=== PATIENT | male | born 1960 | race Caucasian/White ===

== ENCOUNTER 2018-03-20 12:12 | Emergency (ER) | payer OTHER, SELFPAY ==
[2018-03-20 12:29] VITALS: BP 128/79; PULSE 68; RESP 18; TEMP 37.2; O2SAT 98
[2018-03-20 12:40] LABS: Bilirubin Negative (Negative); Blood Trace-intact (Negative); Clarity Clear; Glucose Negative (Negative); Ketones Negative (Negative); Leukocyte Esterase Negative (Negative); Nitrite Negative (Negative); Specific Gravity 1.025 (1.005-1.025); Urobilinogen 0.2 EU/dL (Up TO 0.2)
[2018-03-20 12:51] LABS: Bacteria Negative HPF (Negative); C & S Indicated? No; Casts 0-2 Hyaline LPF (Negative); Crystals Negative HPF (Negative); Epithelial Cells Rare HPF (Negative); Mucus Moderate (Negative); RBC 0-2 (0-2); WBC 0-2 HPF (0-5)
--- NOTE | 2018-03-20 13:11 | ED.GENADUL ---
Disposition Clinical Impression: Abdominal muscle pain Disposition: HOME Condition: Fair Instructions: Musculoskeletal Pain (ED) Additional Instructions: Encourage hydration. Tylenol and/or ibuprofen as needed for discomfort. Heat or ice to affected area. You may try topical patches such as Salonpas or Lidoderm patches to affected area. Please follow-up with primary care this week for reevaluation. Avoid activities that cause increased discomfort. Your laboratory evaluation and CT scan were reassuring while here did not indicate acute abdominal pathology as the source of your pain. If you develop increased pain, fever/chills, nausea/vomiting, change in bowel habits, other new/worsening symptoms please seek care urgently once again. Prescriptions: TraMADol [Ultram] 50 mg PO Q6H PRN #8 tab PRN Reason: Pain Referrals: Roberth De Leon MD [Primary Care Provider] - Medical Decision Making - Lab Data Laboratory Tests 03/20/18 12:35 Urine Color Yellow Urine Clarity Clear Urine pH 6.0 Ur Specific [place] 1.025 Urine Protein Negative Urine Ketones Negative Urine Blood Trace-intact H Urine Nitrite Negative Urine Bilirubin Negative Urine Urobilinogen 0.2 Ur Leukocyte Esterase Negative Urine RBC 0-2 Urine WBC 0-2 Ur Epithelial Cells Rare Urine Crystals Negative Urine Bacteria Negative Urine Casts 0-2 hyaline Urine Mucus Moderate Ur Culture Indicated? No Urine Glucose Negative Results reviewed for labs ordered during visit: Yes - Radiology Data Radiology results: report reviewed CT was reviewed by radiologist. They advised that the appendix appears normal and is filled with oral contrast. Normal-appearing solid organs. No intestinal no obstructive uropathy. No free fluid. No free air. No inflammatory changes. Advise no specific etiology identified for the patient's symptoms. - Medical Decision Making Patient presents today with chief complaint of low central abdominal pain. On exam, patient is resting comfortably. He reports that when he is holding still either directly upright or lying down he is having no discomfort. Relation the pain becomes severe. This was elicited on exam when I had him forward flex bilateral hips. Pain is not unilateral and seems to be affecting both sides, right greater than left. No pain is elicited on palpation. He appears nontoxic with normal vital signs. Rectal exam was performed as he is also endorsing some increased frequency and patient does not have any prostate tenderness. He denies any dysuria or hematuria. No change in bowel habits. States otherwise he is feeling quite well. We will obtain laboratory evaluation as well as CT of the abdomen. Discussed this plan with the patient is in agreement. Patient declines any analgesics at this time. Laboratory evaluation without significant abnormality. No leukocytosis. Only abnormality is a glucose is minimally elevated at 120. Urinalysis is without abnormality. CT results pending. CT was obtained with oral contrast. We are unable to obtain IV contrast secondary to machine malfunction. However, radiologist is able to still get a good read with oral contrast and advised no acute pathology is noted. I discussed these findings with the patient. I also discussed the case with Dr. Zimmer. The patient is only having discomfort with movement. His exam is very reassuring for no peritoneal findings. No pain to palpation. Pain is only elicited with movement making me highly suspicious for muscular cause. He does report that he had groin pull several months ago that was exquisitely tender and quite similar to this. We discussed pain management. We discussed stretching. Heat or ice to affected area. Patient did receive Toradol and is feeling much improved. He is able to ambulate to the restroom unassisted with minimally antalgic gait. Seems to be favoring the right side more so than the left side. Patient is requesting discharge. I have asked that he follow-up with primary care this week. We discussed activities that he should avoid. Note was given for work to excuse him for the next 2 days as patient works in maintenance construction helper. Given the severity of his discomfort he was also prescribed a short course of tramadol. We did discuss safe usage of this medication and he did sign a narcotic contract. We discussed new/worsening symptoms when to seek care urgently once again. All his questions and concerns were addressed and he is in agreement with this plan. History of Present Illness - General Chief complaint: Abd Prob Stated complaint: ABDOMINAL PAIN Time Seen by Provider: 03/20/18 12:15 Source: patient, family, RN notes reviewed Mode of arrival: ambulatory (with crutches) Limitations: no limitations - History of Present Illness Initial comments: Patient is a 57-year-old male presenting today with chief complaint of low central abdominal pain that has been present for the past 3 days. Reports that the pain is severe and much worse with movement. States he has been using crutches to help with mobilization as ambulation is so painful. States that pain completely subsides when he is at rest. He denies any previous abdominal surgeries. No history of GI issues. Denies any change in bowel habits. He does report that he is at increased urgency of urination. Denies any dysuria. No penile discharge. Denies testicular pain. Denies any fevers or chills. Denies any history of prostate issues. Denies any recent trauma. No known over exertion. However, he has been splitting wood and clearing land this week. - Related Data TraMADol [Ultram] 50 mg PO Q6H PRN #8 tab 03/20/18 Allergies Allergy/AdvReac Type Severity Reaction Status Date / Time No Known Allergies Allergy Unverified 03/20/18 12:34 Review of Systems Constitutional: no symptoms reported. denies: chills, fever, malaise Respiratory: no symptoms reported. denies: cough, shortness of breath Cardiovascular: denies: chest pain, palpitations Gastrointestinal: as per HPI, abdominal pain. denies: nausea, vomiting, diarrhea, constipation, hematemesis Genitourinary: as per HPI, frequency. denies: urgency, dysuria, hematuria, discharge, testicular pain, testicular mass Musculoskeletal: denies: back pain Skin: denies: rash, lesions Neurological: denies: headache Past Medical History - Past Medical History Medical history: no medical history Surgical history: no surgical history - Social History Living Situation: lives with family General Exam - General Limitations: no limitations General appearance: alert, in no apparent distress - Head Head exam: Present: atraumatic - Eye Eye exam: Present: normal apperance - ENT ENT exam: Present: mucous membranes moist - Respiratory Respiratory exam: Present: normal lung sounds bilaterally. Absent: respiratory distress - Cardiovascular Cardiovascular Exam: Present: regular rate, normal rhythm, normal heart sounds - GI/Abdominal GI/Abdominal exam: Present: soft, tenderness (no tenderness with palpation. Pain with forward flexion of bilateral hips. Pain slightly worse on the right than the left. ), normal bowel sounds. Absent: distended, guarding, rebound, rigid - Rectal Rectal exam: Present: normal inspection, normal rectal tone, heme (-) stool, normal prostate. Absent: fecal impaction, hemorrhoids, mass, tenderness, prostate tenderness, prostate enlargement - Extremities Exam Extremities exam: Present: normal inspection - Back Exam Back exam: Present: normal inspection. Absent: CVA tenderness (R), CVA tenderness (L) - Neurological Exam Neurological exam: Present: alert, abnormal gait (walking with crutches) - Psychiatric Psychiatric exam: Present: normal affect, normal mood - Skin Skin exam: Present: warm, dry, intact, normal color Course Vital Signs - 24 hr 03/20/18 12:29 Temperature 37.2 C Pulse 68 Respiratory 18 Rate Blood Pressure 128/79 Pulse Oximetry 98
[2018-03-20 13:17] LABS: Abs Immature Grans 0.01 k/cumm (0.0-0.09); Absolute Basophil Count 0.06 k/cumm (0.0-0.2); Absolute Eosinophil Count 0.64 k/cumm (0.0-0.7); Absolute Lymphocyte Count 1.89 k/cumm (1.2-3.4); Absolute Neutrophil Count 6.66 k/cumm (1.2-6.7); Basophils % 0.6; Eosinophils % 6.4; HCT 43.7 % (40.0-50.0); HGB 15.3 g/dL (13.5-17.5); Immature Grans % 0.1; Mean Corpuscular Hemoglobin 31.5 pg (27.0-33.0); Mean Corpuscular Volume 90.1 fL (80-95); Mean Platelet Volume 10.8 fL (8.0-11.0); Neutrophils % 66.9; Platelet Count 168 x1000/uL (130-400); RBC 4.85 m/cumm (4.50-6.00); RBC Distribution Width 13.1 % (11.8-14.1); White Blood Cell Count 9.96 k/cumm (4.4-10.8)
[2018-03-20] MEDS: Lactated Ringers 1,000 ML 1000 ML IV (13:17)
[2018-03-20 13:32] LABS: ALT 26 U/L (12-78); AST 19 U/L (15-37); Albumin 3.6 g/dL (3.4-5.0); Alkaline Phosphatase 69 U/L (46-116); Anion Gap 7.7 mmol/L (3-11); BUN 13 mg/dL (7-18); Bilirubin, Total 0.5 mg/dL (0.2-1.0); CO2 28.3 mmol/L (21.0-32.0); CREATININE 0.97 mg/dL (0.70-1.30); Calcium 8.8 mg/dL (8.5-10.1); Chloride 104 mmol/L (98-107); Glucose 120 mg/dL (70-100); Lipase 132 U/L (73-393); Magnesium 2.1 mg/dL (1.8-2.4); Potassium 3.8 mmol/L (3.5-5.1); Sodium 140 mmol/L (136-145); Total Protein 6.9 g/dL (6.4-8.2)
[2018-03-20 13:35] LABS: Troponin I < 0.02 ng/mL (0.00-0.06)
--- NOTE | 2018-03-20 13:44 | DI.RPTCT_ITS ---
SYMPTOM/DIAGNOSIS: LOW CENTRAL ABDOMINAL PAIN CT ABDOMEN AND PELVIS: There are no prior comparison exams. Images were performed from the lung bases through the ischial tuberosities after oral and without benefit of IV contrast. The lung bases are clear. The heart size is normal. The liver, gallbladder, spleen, pancreas and adrenals appear normal. There are too small nonobstructing calculi in the right kidney. The left kidney is unremarkable. The appendix appears normal. There is no bowel dilatation or inflammatory change. The bladder is unremarkable. There is a small fatty containing left inguinal hernia. IMPRESSION: Nonobstructing right renal calculi, no acute abnormality
[2018-03-20] MEDS: Ketorolac 30 MG/ML VIAL IVP (14:55)
[2018-03-20 15:05] VITALS: BP 110/90; PULSE 62; RESP 18; TEMP 36.6; O2SAT 97
--- NOTE | 2018-03-20 16:07 | DI.VRAD_ITS ---
EXAM: CT Abdomen and Pelvis Without Intravenous Contrast CLINICAL HISTORY: 57 years old, male; Pain; Other: Lower central abdominal pain. ; Patient HX: No prior abdominal surgeries, pain since wednesday TECHNIQUE: Axial computed tomography images of the abdomen and pelvis without intravenous contrast. All CT scans at this facility use at least one of these dose optimization techniques: automated exposure control; mA and/or kV adjustment per patient size (includes targeted exams where dose is matched to clinical indication); or iterative reconstruction. Coronal and sagittal reformatted images were created and reviewed. COMPARISON: No relevant prior studies available. FINDINGS: The appendix appears normal and is filled with oral contrast. Normal appearing solid organs. No intestinal obstruction. No obstructive uropathy. No free fluid. No free air. No inflammatory changes. IMPRESSION: No specific etiology identified for the patient's symptoms. Dictated and Authenticated by: Donn Black MD. Ordering:FLORY LIZARRAGA MD
[2018-03-20] MEDS: MORPHine 10 MG/ML VIAL 2 MG IVP (16:38)
== END 2018-03-20 16:55 | disposition home or self-care (01) ==
PROVIDERS: Physician Assistant; Emergency Provider Physician Assistant; PCP Family Medicine
DX: S39.011A Strain of muscle, fascia and tendon of abdomen, initial encounter (principal); X50.0XXA Overexertion from strenuous movement or load, initial encounter; R35.0 Frequency of micturition
CPT/HCPCS: 36415; 80053; 83690; 96361; 96374; 96375; 99285; 74176; 81003; 81015; 83735; 84484; 85025; 99284; J1885; J2270

== ENCOUNTER 2018-06-23 04:44 | Emergency (ER) | payer OTHER, SELFPAY ==
[2018-06-23 04:59] LABS: Bilirubin Negative (Negative); Blood Small (Negative); Clarity Clear; Glucose Negative (Negative); Ketones Negative (Negative); Leukocyte Esterase Negative (Negative); Nitrite Negative (Negative); Specific Gravity 1.025 (1.005-1.025); Urobilinogen 0.2 EU/dL (Up TO 0.2); pH 6.5 (5-8)
[2018-06-23 05:00] VITALS: BP 139/84; PULSE 63; RESP 22; TEMP 37; O2SAT 100
--- NOTE | 2018-06-23 05:01 | DI.CT_ITS ---
SYMPTOM/DIAGNOSIS: FLANK PAIN, SUDDEN ONSET, DIFFICULTY URINATING. ABDOMINAL AND PELVIC CT: 06/23/18 CT examination of the abdomen and pelvis was performed without contrast administration. Images obtained through the lung bases show an area of apparent consolidation peripherally in the right middle lobe which is incompletely imaged, correlation requested regarding the possibility of acute pneumonia. This was not present on previous abdominal CT of 03/20/18. Liver, spleen and pancreas are unremarkable by noncontrast criteria as are the gallbladder and bile ducts. Abdominal aorta is of normal diameter. No significant abdominal wall hernia seen. No significant abdominal or pelvic adenopathy. Appendix appears normal. No evidence of diverticulitis. Adrenals appear normal bilaterally. Left kidney and ureter are normal with no evidence of hydronephrosis or nephrolithiasis. There are nonobstructing stones in the collecting system of the right kidney. There is right hydronephrosis and hydroureter to the level of the ureterovesical junction where there is an intramural 3 mm in diameter obstructing stone. CONCLUSION: 1. 3 mm in diameter right UVJ obstructing stone. 2. Nonobstructing right renal calculi also noted. 3. Findings of right middle lobe suggesting acute pneumonia, please correlate clinically.
--- NOTE | 2018-06-23 05:02 | W.ED.GENAD ---
Discharge Plan Disposition Patient Disposition: HOME Discharge Details Chief Complaint: FlankPain Clinical Impression: Right ureteral calculus, Kidney stones Primary Care Provider: Roberth De Leon ED Provider: Kj Nieto Home Meds and New Rx's Prescriptions: New ibuprofen 600 mg tablet 600 mg PO QID PRN (Reason: pain) Qty: 30 RF: 0 ondansetron 4 mg tablet,disintegrating 4 mg PO TID PRN (Reason: nausea and vomiting) 5 Days RF: 0 Discharge Instructions Instructions: Kidney Stones (ED) Additional Instructions: Please drink plenty of fluids to stay hydrated. Please contact your primary care physician to arrange follow-up. Follow-up with urology should symptoms persist. Return to the ER for any worsening or new concerning symptoms. Referrals: Madhav Oquendo MD [ [facility] STAFF PHYSICIAN] - Medical Decision Making 5:10 -- 57-year-old male here with sudden onset of right suprapubic pain and right flank pain that started around 3 AM minutes and fairly constant. Patient also with a sensation as though he has to urinate. Presentation most consistent with renal colic. He has no focal tenderness over McBurney's point I think this is less likely acute appendicitis. Plan is to check labs, will give zofran IV and analgesia with Toradol IV. I obtained and reviewed CT of the abdomen pelvis that was performed on 03/20/2018: Nonobstructing right renal calculi in the right kidney with no acute abnormality. UA reviewed: RBCs 10-20, WBC 0-2. Ultrasound is not available emergently. Plan to CT abd and pelvis to assess for acute surgical pathology. 5:55 -- CT abdomen and pelvis interpreted by radiology: 3 mm right UVJ stone projecting into the urinary bladder causes mild hydronephrosis. There are 2 nonobstructing stones in the right kidney measuring up to 3 mm. Fluid in the left hemiscrotum 5 cm diameter may be spermatocele or hydrocele. Patient reassessed and notes feels better. Plan is to discharge him with ibuprofen and Zofran. I do not believe tamsulosin is indicated given size of stone. I will have him follow-up with urology should symptoms not improve over the next couple days. Disposition decision was made weighing the risks and benefits of hospitalization versus outpatient treatment, the risk for further decompensation, and the patient's wishes. The patient was stable and requested discharge. Prior to discharge, my usual and customary return precautions were reviewed with the patient - this included follow-up instructions and reason to return to the emergency department if condition worsens, does not improve as expected, or other new concerns arise. HPI General Mode of arrival: ambulatory. Date/Time Provider Initiated Documentation: 06/23/18 05:00. Limitations to Documentation: no limitations. Information obtained by: patient. HPI Narrative: 57-year-old male presents with chief complaint of abdominal pain. Patient notes that pain started in his right lower abdomen and groin at 3 AM. Pain is been constant. Severe. No modifiers. He has associated nausea and vomiting x2. Pain is described as sharp. He also notes a sensation that he feels like he constantly has to urinate. Related Data Home Medications Medication Instructions Recorded Confirmed ibuprofen 600 mg PO QID PRN #30 tab 06/23/18 ondansetron 4 mg PO TID PRN 5 Days tab 06/23/18 Previous Rx's Medication Instructions Recorded ibuprofen 600 mg PO QID PRN #30 tab 06/23/18 ondansetron 4 mg PO TID PRN 5 Days tab 06/23/18 Allergies Allergy/AdvReac Type Severity Reaction Status Date / Time No Known Allergies Allergy Unverified 06/23/18 05:12 General ARTUR: 3 Review of Systems Review of Systems All systems reviewed & are unremarkable except as noted in HPI and below Gastrointestinal Reports nausea and Reports vomiting Genitourinary Reports as per HPI, Denies hematuria, Denies genital pain, Denies dysuria, Reports flank pain (right), Denies penile discharge, Reports testicular mass (chronic unchanged left) and Denies testicular pain [facility] [place] Social History Smoking/Tobacco Use Status: Never Surgical History Colonoscopy - MAC (05/19/13) Exam Const General: uncomfortable and well developed HENMT Mouth: moist mucous membranes Eyes Conjunctivae: conjunctivae normal Sclera: sclerae normal Neck Neck: normal visual inspection Resp Effort & Inspection: normal respiratory effort and no respiratory distress Auscultation: no rales, no rhonchi and no wheezes Cardio Jugular venous pressure: no JVD Rate: regular rate Rhythm: regular rhythm Heart Sounds: no gallops, no murmurs and no rubs GI Inspection: non-distended Palpation: soft, no guarding, no hernias, not rigid and tender (rt suprapubic) not at McBurney's point and with no rebound tenderness Auscultation: normal bowel sounds Skin General skin exam: no rashes or lesions noted and other (warm) Neuro General: alert, awake and moves all extremities Extrem General: no edema Psych Appearance: grossly normal Mental Status: mental status grossly normal Speech and Movement: speech and movement normal
[2018-06-23] MEDS: Ondansetron 4 MG/2 ML VIAL (05:07)
[2018-06-23] MEDS: Ketorolac 15 MG/ML VIAL IVP (05:07)
[2018-06-23 05:08] LABS: Bacteria Rare HPF (Negative); C & S Indicated? No; Casts Negative LPF (Negative); Crystals Negative HPF (Negative); Epithelial Cells Rare HPF (Negative); Mucus Negative (Negative); WBC 0-2 HPF (0-5)
[2018-06-23] MEDS: Lactated Ringers 1,000 ML 1000 ML IV (05:08)
[2018-06-23 05:13] LABS: Abs Immature Grans 0.01 k/cumm (0.0-0.09); Absolute Eosinophil Count 0.76 k/cumm (0.0-0.7); Absolute Lymphocyte Count 2.14 k/cumm (1.2-3.4); Absolute Monocyte Count 0.74 k/cumm (0.11-0.7); Basophils % 0.8; Eosinophils % 6.3; HCT 46.2 % (40.0-50.0); HGB 15.8 g/dL (13.5-17.5); Immature Grans % 0.1; Lymphocytes % 17.7; Mean Corp. HGB Concentration 34.2 g/dL (32.0-36.0); Mean Corpuscular Hemoglobin 30.7 pg (27.0-33.0); Mean Corpuscular Volume 89.9 fL (80-95); Mean Platelet Volume 10.1 fL (8.0-11.0); Monocytes % 6.1; Platelet Count 219 x1000/uL (130-400); RBC 5.14 m/cumm (4.50-6.00); RBC Distribution Width 12.8 % (11.8-14.1); White Blood Cell Count 12.08 k/cumm (4.4-10.8)
[2018-06-23 05:14] LABS: Absolute Neutrophil Count 8.34 k/cumm (1.2-6.7)
--- NOTE | 2018-06-23 05:18 | ED.GENADUL_ITS ---
Discharge Plan Disposition Patient Disposition: HOME Discharge Details Chief Complaint: FlankPain Clinical Impression: Right ureteral calculus, Kidney stones Primary Care Provider: Roberth De Leon ED Provider: Kj Nieto Home Meds and New Rx's Prescriptions: New ibuprofen 600 mg tablet 600 mg PO QID PRN (Reason: pain) Qty: 30 RF: 0 ondansetron 4 mg tablet,disintegrating 4 mg PO TID PRN (Reason: nausea and vomiting) 5 Days RF: 0 Discharge Instructions Instructions: Kidney Stones (ED) Additional Instructions: Please drink plenty of fluids to stay hydrated. Please contact your primary care physician to arrange follow-up. Follow-up with urology should symptoms persist. Return to the ER for any worsening or new concerning symptoms. Referrals: Madhav Oquendo MD [ [facility] STAFF PHYSICIAN] - Medical Decision Making 5:10 -- 57-year-old male here with sudden onset of right suprapubic pain and right flank pain that started around 3 AM minutes and fairly constant. Patient also with a sensation as though he has to urinate. Presentation most consistent with renal colic. He has no focal tenderness over McBurney's point I think this is less likely acute appendicitis. Plan is to check labs, will give zofran IV and analgesia with Toradol IV. I obtained and reviewed CT of the abdomen pelvis that was performed on 03/20/2018 : Nonobstructing right renal calculi in the right kidney with no acute abnormality. UA reviewed: RBCs 10-20, WBC 0-2. Ultrasound is not available emergently. Plan to CT abd and pelvis to assess for acute surgical pathology. 5:55 -- CT abdomen and pelvis interpreted by radiology: 3 mm right UVJ stone projecting into the urinary bladder causes mild hydronephrosis. There are 2 nonobstructing stones in the right kidney measuring up to 3 mm. Fluid in the left hemiscrotum 5 cm diameter may be spermatocele or hydrocele. Patient reassessed and notes feels better. Plan is to discharge him with ibuprofen and Zofran. I do not believe tamsulosin is indicated given size of stone. I will have him follow-up with urology should symptoms not improve over the next couple days. Disposition decision was made weighing the risks and benefits of hospitalization versus outpatient treatment, the risk for further decompensation , and the patient's wishes. The patient was stable and requested discharge. Prior to discharge, my usual and customary return precautions were reviewed with the patient - this included follow-up instructions and reason to return to the emergency department if condition worsens, does not improve as expected, or other new concerns arise. HPI General Mode of arrival: ambulatory . Date/Time Provider Initiated Documentation: 06/23/18 05:00 . Limitations to Documentation: no limitations . Information obtained by: patient . HPI Narrative: 57-year-old male presents with chief complaint of abdominal pain. Patient notes that pain started in his right lower abdomen and groin at 3 AM. Pain is been constant. Severe. No modifiers. He has associated nausea and vomiting x2. Pain is described as sharp. He also notes a sensation that he feels like he constantly has to urinate. Related Data Home Medications Medication Instructions Recorded Confirmed ibuprofen 600 mg PO QID PRN #30 tab 06/23/18 ondansetron 4 mg PO TID PRN 5 Days tab 06/23/18 Previous Rx's Medication Instructions Recorded ibuprofen 600 mg PO QID PRN #30 tab 06/23/18 ondansetron 4 mg PO TID PRN 5 Days tab 06/23/18 Allergies Allergy/AdvReac Type Severity Reaction Status Date / Time No Known Allergies Allergy Unverified 06/23/18 05:12 General ARTUR: 3 Review of Systems Review of Systems All systems reviewed & are unremarkable except as noted in HPI and below Gastrointestinal Reports nausea and Reports vomiting Genitourinary Reports as per HPI, Denies hematuria, Denies genital pain, Denies dysuria, Reports flank pain (right), Denies penile discharge, Reports testicular mass ( chronic unchanged left) and Denies testicular pain [facility] Social History Smoking/Tobacco Use Status: Never Surgical History Colonoscopy - MAC (05/19/13) Exam Const General: uncomfortable and well developed HENMT Mouth: moist mucous membranes Eyes Conjunctivae: conjunctivae normal Sclera: sclerae normal Neck Neck: normal visual inspection Resp Effort & Inspection: normal respiratory effort and no respiratory distress Auscultation: no rales, no rhonchi and no wheezes Cardio Jugular venous pressure: no JVD Rate: regular rate Rhythm: regular rhythm Heart Sounds: no gallops, no murmurs and no rubs GI Inspection: non-distended Palpation: soft, no guarding, no hernias, not rigid and tender (rt suprapubic) not at McBurney's point and with no rebound tenderness Auscultation: normal bowel sounds Skin General skin exam: no rashes or lesions noted and other (warm) Neuro General: alert, awake and moves all extremities Extrem General: no edema Psych Appearance: grossly normal Mental Status: mental status grossly normal Speech and Movement: speech and movement normal
[2018-06-23 05:25] LABS: ALT 29 U/L (12-78); AST 22 U/L (15-37); Alkaline Phosphatase 57 U/L (46-116); Anion Gap 9.6 mmol/L (3-11); BUN 25 mg/dL (7-18); Bilirubin, Total 0.6 mg/dL (0.2-1.0); CO2 27.4 mmol/L (21.0-32.0); CREATININE 1.35 mg/dL (0.70-1.30); Calcium 8.8 mg/dL (8.5-10.1); Chloride 104 mmol/L (98-107); Estimated GFR 54.87 (mL/min/1.73m2); Glucose 137 mg/dL (70-100); Potassium 3.7 mmol/L (3.5-5.1); Sodium 141 mmol/L (136-145); Total Protein 7.3 g/dL (6.4-8.2)
--- NOTE | 2018-06-23 05:43 | DI.VRAD_ITS ---
EXAM: CT Abdomen and Pelvis Without Intravenous Contrast EXAM DATE/TIME: 06/23/2018 5:03 AM CLINICAL HISTORY: 57 years old, male; Pain; Abdominal pain; Localized; Other: R flank and rlq; Patient HX: Sudden onset of rlq and r flank pain difficulty urinating and vomiting TECHNIQUE: Axial computed tomography images of the abdomen and pelvis without intravenous contrast. All CT scans at this facility use at least one of these dose optimization techniques: automated exposure control; mA and/or kV adjustment per patient size (includes targeted exams where dose is matched to clinical indication); or iterative reconstruction. Coronal and sagittal reformatted images were created and reviewed. COMPARISON: CT ABD PELVIS WO CONTRAST 03/20/2018 3:17 PM FINDINGS: Lower thorax: Small amount of postinflammatory change in the visualized portion of the right middle lobe. ABDOMEN: Liver: Unremarkable. No suspicious lesions. Gallbladder and bile ducts: Unremarkable. Pancreas: Unremarkable. Spleen: Unremarkable. No suspicious lesions. Adrenals: Unremarkable. No suspicious nodule. Kidneys and ureters: 3 mm right UVJ stone projecting into the urinary bladder causes mild hydronephrosis. There are 2 nonobstructing stones in the right kidney measuring up to 3 mm. Stomach and bowel: Unremarkable. No inflammed or dilated loops. Appendix: No evidence of appendicitis. PELVIS: Bladder: Unremarkable as visualized. Reproductive: Fluid in the left hemiscrotum the diameter 5 cm may be a spermatocele or a hydrocele. ABDOMEN and PELVIS: Intraperitoneal space: No free air. No significant fluid collection. Bones/joints: No acute fracture. No dislocation. Soft tissues: Unremarkable. Vasculature: Unremarkable. Lymph nodes: Unremarkable. IMPRESSION: 3 mm right UVJ stone causing mild hydronephrosis. Dictated and Authenticated by: Elijah Edwards MD. Ordering:LUIS CARLOS KHAN MD
[2018-06-23 06:08] VITALS: BP 128/74; PULSE 64; RESP 16; TEMP 36.9; O2SAT 98
== END 2018-06-23 06:26 | disposition home or self-care (01) ==
LOC: ER 06:13
PROVIDERS: Emergency Provider Student in an Organized Health Care Education/Training Program; PCP Family Medicine
DX: N20.2 Calculus of kidney with calculus of ureter (principal)
CPT/HCPCS: 80053; 96361; 96374; 99284; 74176; 81003; 81015; 85025; J1885; J2405

== ENCOUNTER 2019-05-26 12:13 | Outpatient (CLI) | payer OTHER, SELFPAY ==
--- NOTE | 2019-05-26 15:58 | DI.RAD_ITS ---
EXAM: XR FOOT LT COMPLETE INDICATION: ACQUIRED HAMMER TOE LT FOOT, M20.42. COMPARISON: No exams were available for comparison TECHNIQUE: 2D digital imaging was performed. FINDINGS: A small ossicle is seen at the anterior process of the calcaneus. Heel spurs are present. There ar e mild degenerative changes of the intertarsal and tarsal metatarsal joints. IMPRESSION:
== END 2019-05-26 12:33 ==
PROVIDERS: PCP Family Medicine; Visit Provider Podiatrist Foot & Ankle Surgery
DX: M20.42 Other hammer toe(s) (acquired), left foot (principal); M77.32 Calcaneal spur, left foot; M19.072 Primary osteoarthritis, left ankle and foot
CPT/HCPCS: 73630

== ENCOUNTER 2020-08-28 04:22 | Outpatient (CLI) | payer OTHER, SELFPAY ==
[2020-08-28 14:53] LABS: Hemoglobin A1C 5.1 % (<5.7)
[2020-08-28 15:08] LABS: BUN 18 mg/dL (7-18); CREATININE 1.13 mg/dL (0.70-1.30); Calculated LDL 57 mg/dL (<100); Chloride 106 mmol/L (98-107); Cholesterol 132 mg/dL (<200); Glucose 101 mg/dL (74-106); HDL Cholesterol 46 mg/dL (40-60); Potassium 4.2 mmol/L (3.5-5.1); Sodium 142 mmol/L (136-145); Triglyceride 149 mg/dL (<150)
[2020-08-28 22:28] LABS: PSA, Screening 1.4 ng/mL (0.0-3.5)
== END 2020-08-28 04:42 ==
PROVIDERS: PCP Nurse Practitioner Family; Visit Provider Nurse Practitioner Family
DX: Z00.00 Encounter for general adult medical examination without abnormal findings (principal); Z13.220 Encounter for screening for lipoid disorders; Z13.1 Encounter for screening for diabetes mellitus; Z12.5 Encounter for screening for malignant neoplasm of prostate
CPT/HCPCS: 36415; 80048; 80061; 84153; 83036

== ENCOUNTER 2020-09-05 14:15 | Outpatient (REF) | payer OTHER, SELFPAY ==
[2020-09-06 18:22] LABS: COVID-19 RT-PCR UVMMC Result Negative (Negative)
== END 2020-09-05 14:35 ==
LOC: NCHCN 14:15
PROVIDERS: PCP Nurse Practitioner Family; Visit Provider Nurse Practitioner Family
DX: J98.01 Acute bronchospasm (principal)
CPT/HCPCS: U0003

== ENCOUNTER 2020-09-17 01:07 | Outpatient (CLI) | payer OTHER, SELFPAY ==
--- NOTE | 2020-09-17 15:15 | DI.RAD_ITS ---
EXAM: XR CHEST 2V PA LATERAL CLINICAL HISTORY: sob, wheeze, cough x 1.5mo, negative covid,R06.02 TECHNIQUE: 2D digital imaging was performed. COMPARISON: CR CHEST 2 VIEWS PA,LAT from 12/02/2010 FINDINGS: MEDIASTINUM: Normal. HEART: Normal. PULMONARY VASCULATURE: Normal. LUNGS: Clear. PLEURAL SPACE: No pleural effusion or pneumothorax. BONE:Within normal limits for the patient's age. OTHER FINDINGS:Normal. IMPRESSION: No acute pulmonary findings. DATA REPOSITORY: RADIATION DOSE DELIVERED:
== END 2020-09-17 01:08 ==
LOC: DI 01:07
PROVIDERS: PCP Nurse Practitioner Family; Visit Provider Nurse Practitioner Family
DX: R06.02 Shortness of breath (principal); R05 Cough; R06.2 Wheezing
CPT/HCPCS: 71046

== ENCOUNTER 2020-10-25 02:55 | Outpatient (CLI) | payer OTHER, SELFPAY ==
[2020-10-25 12:12] LABS: Source Nasal/Nares
[2020-10-25 20:45] LABS: COVID-19 PCR Negative (Negative)
== END 2020-10-25 02:56 | disposition home or self-care (01) ==
LOC: LBO 02:55
PROVIDERS: PCP Nurse Practitioner Family; Visit Provider Surgery
DX: Z20.828 Contact with and (suspected) exposure to other viral communicable diseases (principal); Z01.818 Encounter for other preprocedural examination
CPT/HCPCS: 87635; U0003

== ENCOUNTER 2020-10-28 06:14 | Day surgery (SDC) | payer OTHER, SELFPAY ==
--- NOTE | 2020-10-28 06:32 | W.PREOPHP ---
Date of service: 10/28/20 Time of Service: 06:32 Assessment and Plan Assessment and plan (1) Dysphagia: Status: Acute (2) Hx of colonic polyps: Status: Acute Assessment and plan: The patient is here for Colonoscopy pre-op. His last screening was in 2012 and was remarkable for hamartomatous polyp. He has no family history of colon cancer. He has not had any bowel habit changes. -Discussed colonoscopy bowel prep as well as the procedure. Discussed possible complications of the procedure to include bleeding, pain, perforation, missed small lesion/polyp, sore throat, aspiration and adverse reaction to the medications. Questions were answered to patient?s satisfaction. No guarantees were implied or given. -Discussed Upper endoscopy procedure and the need to be NPO after midnight the night prior. Discussed possible complications of the procedure to include bleeding, pain, perforation, missed small lesion/polyp/ulcers, sore throat, aspiration and adverse reaction to the medications or sedation. Questions were answered to patient?s satisfaction. No guarantees were implied or given. History of Present Illness Narrative: 60 y/o male presents for colonoscopy screening pre-op. His last screening was in 2012, which was remarkable for hamartomatous polyp. He denies a family history of colon cancer. He denies any changes in bowel habits including bloody or black tarry stools, abdominal pain, diarrhea or constipation. He denies constitutional symptoms. Denies use of marijuana or any other recreational or illegal drugs. Patient also expresses having difficulty swallowing for 25-30 years. He states that things get stuck, pills, metal, shredded wheat, even liquids. He is not able to swallow large pills. He states frequently when he has this sensation, he vomits which dislodges the item. It feels like its getting stuck in the same place every time. Barium Swallow from 2011 was unremarkable. He denies chest pain, palpitations, dyspnea or dyspnea with exertion. He has been struggling with chest congestion since [place] time. He states he has seen his PCP for this with mild, if any improvement. He denies prior history or family history of adverse reactions or complications with anesthesia. The patient denies any history of stroke, [place], seizures, bleeding or clotting disorders. He denies having any implanted metal in his body. No changes in his health since he was seen in early September Review of Systems Cardiovascular Cardiovascular: Denies chest pain, Denies chest pain at rest, Denies irregular heart rhythm, Denies dyspnea and Denies dyspnea on exertion Respiratory Respiratory: Denies cough, Denies dyspnea and Denies dyspnea on exertion Gastrointestinal Gastrointestinal: Reports as per HPI Genitourinary Genitourinary: Denies dysuria, Denies urinary incontinence and Denies urinary urgency Endocrine Endocrine: Reports system reviewed and no additional complaints, except as documented Hematologic/Lymphatic Hematologic/Lymphatic: Denies easy bruising and Denies lymphadenopathy [facility] Medical History (Updated 10/28/20 @ 06:38 by Ashlie Lott MD) Asthma Dysphagia Surgical History S/P arthroscopy of right shoulder S/P colonoscopy (05/19/13) Family History Mother Alcohol abuse Stroke Father Dementia Sister Substance abuse Brother Gout Brother No problems noted. Brother No problems noted. Son No problems noted. Son No problems noted. Maternal Grandfather , at 56 of [place] or stroke No problems noted. Maternal Grandmother No problems noted. Paternal Grandfather No problems noted. Paternal Grandmother No problems noted. Social History Smoking/Tobacco Use Status: Never Second Hand Exposure: Yes Smoking risk assessment performed?: Yes Alcohol Intake: current Alcohol Intake frequency: a few times a month Drug use: Never Substance use type: does not use Do you feel safe in your relationship?: Yes Victim of physical abuse: No Victim of emotional abuse: No Victim of sexual abuse: No Would you like helpful sources: No Meds Home Medications and Allergies Allergies Allergy/AdvReac Type Severity Reaction Status Date / Time No Known Allergies Allergy Verified 10/28/20 06:34 Home Medications Medication Instructions Recorded Confirmed Type albuterol sulfate 90 mcg/actuation 1 - 2 puff INHALATION Q4H PRN #1 09/05/20 10/24/20 Rx aerosol inhaler unit bisacodyl 5 mg tablet,delayed 5 mg PO ONCE #4 tab 09/13/20 10/24/20 Rx release fluticasone propionate 110 1 inh INHALATION BID #12 g 10/10/20 10/24/20 Rx mcg/actuation HFA aerosol inhaler Exam Const General: comfortable and no acute distress Orientation: alert and oriented x3 HENMT Head: normocephalic and atraumatic Resp Effort & Inspection: normal respiratory effort Auscultation: clear to auscultation bilaterally Cardio Rate: regular rate Rhythm: regular rhythm
[2020-10-28 06:38] VITALS: BP 137/89; PULSE 69; RESP 18; TEMP 36.4; O2SAT 99
--- NOTE | 2020-10-28 06:40 | ENDO_ITS ---
Date of service: 10/28/20 Time of Service: : Endoscopy Report DATE OF PROCEDURE: 10/28/20 PRE-OP DIAGNOSIS: Dysphagia and Hx of colon polyps POST-OP DIAGNOSIS: other (mild gastritis, esophagitis with schatzki's ring, sigmoid polyp) PROCEDURE: 1. EGD with biopsies 2. Colonoscopy with polypectomy SURGEON: Ashlie Lott ANESTHESIA TYPE: General:No Airway (ASA 2/Leno Maradiaga, MARGARITA) ESTIMATED BLOOD LOSS: 3 PATHOLOGY: other (Bx of duodenum and antrum, sigmoid polyp) COMPLICATIONS: None DISPOSITION: same day INDICATIONS: 60 y/o male presents for colonoscopy screening pre-op. His last screening was in 2012, which was remarkable for hamartomatous polyp. He denies a family history of colon cancer. He denies any changes in bowel habits including bloody or black tarry stools, abdominal pain, diarrhea or constipation. He denies constitutional symptoms. Denies use of marijuana or any other recreational or illegal drugs. Patient also expresses having difficulty swallowing for 25-30 years. He states that things get stuck, pills, metal, shredded wheat, even liquids. He is not able to swallow large pills. He states frequently when he has this sensation, he vomits which dislodges the item. It feels like its getting stuck in the same place every time. Barium Swallow from 2011 was unremarkable. He denies chest pain, palpitations, dyspnea or dyspnea with exertion. He has been struggling with chest congestion since [place] time. He states he has seen his PCP for this with mild, if any improvement. He denies prior history or family history of adverse reactions or complications with anesthesia. The patient denies any history of stroke, [place], seizures, bleeding or clotting disorders. He denies having any implanted metal in his body. PREP: Miralax/Dulcolax PROCEDURE START TIME: :22 PROCEDURE END TIME: 08:00 COLONOSCOPY RETRACTION TIME: 19 minutes FINDINGS: Upper- mild gastritis, esophhagitis, schatzki's ring Colonoscopy- sigmoid polyp <5 mm PROCEDURE DESCRIPTION: After informed consent was obtained the patient was take to the procedure room and placed in a supine position. Monitors were applied and a time out was done. The patients name, date of , procedure type, allergies to medications and metal in their body was reviewed. A bite block was placed and the patient was sedated. Once sedated and comfortable the gastroscope was advanced through the oropharynx which was grossly normal into the esophagus. The proximal and mid- esophagus were normal. In the distal esophagus there was inflammation noted. There was a Schatzki's ring. The scope was advanced into the stomach and through the pylorus into the 3rd portion of the duodenum. The duodenum was noted to have mild inflammation. Biopsies were done. The scope was retracted back into the stomach. There was mild inflammation noted in the antrum and body. Biopsies were done to rule out H. pylori. There were a few shallow ulcers. The scope was retro-flexed. The cardia and fundus were noted to be normal. There was no hiatal hernia noted. The scope was retracted back into the esophagus and biopsies were done of the GE junction to rule out Mcmanus's. The Z line was regular. The GE junction was at 40 cm. While the patient was still sedated they were placed in a left decubitous position. A rectal exam was done. External exam was normal. Internal exam revealed a normal sphincter tone and no palpable masses. The prostate felt smooth and slightly enlarged. The scope was then introduced and retro-flexed. No internal hemorrhoids, masses or polyps were identified on retroflexion. The scope was then advanced to the cecum without difficulty. The ileocecal valve and appendiceal orifice were identified. The prep was good. The scope was then slowly retracted over 19 minutes back into the rectum. Polyps were removed with cold forceps in the sigmoid colon. There was no diverticulosis noted. The scope was removed and the patient was woken up and taken back to Same day surgery in stable condition. The patient tolerated the procedure well and there were no immediate complications. Follow up: 5 years for next colonoscopy. Follow up in 2 weeks in the office
--- NOTE | 2020-10-28 06:47 | W.PM.DSUDISC ---
Discharge Plan Disposition Patient Disposition: HOME Condition: Good Discharge Details Reason For Visit: colo/egd Attending Provider: Ashlie Lott Primary Care Provider: Shira Bucio Home Meds and New Rx's Prescriptions: New omeprazole 40 mg capsule,delayed release(DR/EC) 40 mg PO DAILY Qty: 30 RF: 4 Continued albuterol sulfate 90 mcg/actuation HFA aerosol inhaler 1 - 2 puff inhalation Q4H PRN (Reason: shortness of breath or wheezing) Qty: 1 RF: 0 Flovent HFA 110 mcg/actuation HFA aerosol inhaler 1 inh inhalation BID Qty: 12 RF: 0 Discontinued bisacodyl [Dulcolax (bisacodyl)] 5 mg tablet,delayed release (DR/EC) 5 mg PO ONCE Qty: 4 RF: 0 Discharge Instructions Instructions: Colorectal Polyps (DC), Esophagitis (DC) Additional Instructions: Findings:inflammation of the stomach with some small healing ulcers and inflammation in the esophagus with scarring One polyp in the sigmoid colon Follow up: 5 years for next colonoscopy Please call if you develop: fevers >101.5 Nausea or Vomiting Abdominal pain that is not transient DAY SURGERY UNIT POST ENDOSCOPY INSTRUCTIONS 1. Because there will be medication in your system for the next 24 hours, you may feel a little sleepy. Your coordination will be affected. Therefore: a. Do not drive or operate dangerous equipment for 24 hours. b. Do not drink alcohol beverages for 24 hours (not even beer). c. Plan to go home and rest for the day. 2. Generally there are no restrictions on your activity after a day or so has gone by, but you may feel a bit fatigued for a few days. 3 After you arrive home you may have a light meal and return to a normal diet as you can tolerate it without feeling sick to your stomach. 4. After surgery, you may feel pain or discomfort. This should be only transient, but if it persists please contact your doctor. 5. If there are any questions regarding the findings of your procedure, please feel free to contact your doctor. 6. If you are unable to contact your doctor with a problem, contact the hospital at [phone]. 7. Continue all your regular medications unless directed otherwise. I understand the above instructions and have no questions. Signature of Patient or Responsible Adult Escort Date/Time Name of Responsible Adult Escort Signature of Nurse Date/Time Referrals: Ashlie Lott MD [ [facility] STAFF PHYSICIAN] - 11/08/20 9:30 am Activity:: Activity as Tolerated Diet:: As Tolerated Discharge Orders Discharge Orders: Discharge Order (Routine); Ordered 10/28/20 Ordered By: Ashlie Lott DS: Diagnosis Discharge Diagnosis (1) Dysphagia: Status: Acute (2) Hx of colonic polyps: Status: Acute
[2020-10-28] MEDS: Lactated Ringers 1,000 ML 80 ML IV (06:50)
--- NOTE | 2020-10-28 07:24 | BOWEL_PTH ---
PATIENT: Audi Cook LOC: [facility] U#:[id number] AGE/SX: 60/M ROOM: RE10/28/[address]: Ashlie Lott MD : 1960 BED: DIS: 10/28/2020 SPEC #: [id number] RECD: 10/28/20 12:42 STATUS: KARIE REShailesh #: [id number] ANGELICA: 10/28/20 07:[address]: Ashlie Lott DEPT: Surgical Specimen RECD BY: Brandi Slaughter ENTERED: 10/28/20 12:44 SP TYPE: Bowel OTHR DR: Shira Bucio, BAND SAWMILL OPERATOR Tissues: 1 - BIOPSY BOWEL 2 - STOMACH BIOPSY 3 - ESOPHAGUS BIOPSY 4 - BIOPSY BOWEL Procedures: GROSS AND MICRO LEVEL 4 Comments: [id number]
[2020-10-28 08:35] VITALS: BP 113/76; PULSE 63; RESP 18; TEMP 36.2; O2SAT 95
== END 2020-10-28 08:55 | disposition home or self-care (01) ==
PROVIDERS: PCP Nurse Practitioner Family; Visit Provider Surgery
PROC: (CPT 45380; principal; 2020-10-28 07:30)
DX: R13.10 Dysphagia, unspecified (principal); Z12.11 Encounter for screening for malignant neoplasm of colon; K29.70 Gastritis, unspecified, without bleeding; K63.5 Polyp of colon; K22.2 Esophageal obstruction; K20.90 Esophagitis, unspecified without bleeding; K25.9 Gastric ulcer, unspecified as acute or chronic, without hemorrhage or perforation; K29.80 Duodenitis without bleeding; K21.00 Gastro-esophageal reflux disease with esophagitis, without bleeding; Z86.010 Personal history of colon polyps; J45.909 Unspecified asthma, uncomplicated
CPT/HCPCS: 45380; 43239; 88305; NC; J2001; J2704

== ENCOUNTER 2020-11-22 03:39 | Outpatient (CLI) | payer OTHER, SELFPAY ==
--- NOTE | 2020-11-22 06:15 | DI.CT_ITS ---
EXAM: CT CHEST WO CLINICAL HISTORY: SOB x 2mo,ORTHOPNEA,R06.02,R06.01. TECHNIQUE: Imaging protocol: Axial computed tomography images were obtained and coronal and sagittal reformatted images were created and reviewed. COMPARISON: CR XR CHEST 2V PA LATERAL from 09/17/2020 FINDINGS: Tracheobronchial tree: Patent where visualized. Pulmonary parenchyma: No consolidation or dominant measurable mass. No architectural distortion. Mediastinum and Lara: No dominant adenopathy or fluid collection. Pleura: No effusion or pneumothorax. Heart: The heart is not dilated. Single tiny focal calcification in the LAD. No pericardial effusion . Aorta: Thoracic aorta non-dilated. Upper abdomen: Unremarkable. Lymph nodes: Within normal limits. Soft tissues: Unremarkable. Bones:Within normal limits for the patient's age. IMPRESSION: Unremarkable CT scan of the chest. RADIATION DOSE DELIVERED: 575.71mGy.cm Total DLP 575.71mGy.cm Total DLP DATA REPOSITORY: All CT scans at this facility are submitted to the National Radiology Data Registry (NRDR) Dose Index Registry (DIR) with the [employer] (ACR). RADIATION OPTIMIZATION: All CT scans at this facility use at least one of these dose optimization te chniques: automated exposure control; mA and/or kV adjustment per patient size (includes targeted exa ms where dose is matched to clinical indication); or iterative reconstruction.
--- NOTE | 2020-11-22 07:25 | DI.US_ITS ---
APPROVED REPORT EXAM: Comprehensive 2D, Doppler, and color-flow Echocardiogram Patient Location: Out-Patient Fish Bait Picker: Carrie Robbins RDCS (AE) Indications: Orthopnea, SOB Other Information Study Quality: Good Conclusion Normal left ventricular wall thickness and chamber size. Estimated ejection fraction is 60%. There are no segmental wall motion abnormalities Right ventricular size and systolic function Both atria are normal in size There is no significant valvular disease Wall motion Left Ventricle The left ventricle is normal size. The left ventricular systolic function is normal. The left ventric ular ejection fraction is within the normal range. There is normal left ventricular wall thickness. T here is normal LV segmental wall motion. There is no ventricular septal defect visualized. LVEF is 60 %. Right Ventricle The right ventricle is normal size. The right ventricular systolic function is normal. The RVSP is 23 .8 mmHg. Atria The left atrium size is normal. The right atrium size is normal. The interatrial septum is intact wit h no evidence for an atrial septal defect. Aortic Valve The aortic valve is normal in structure. Aortic valve is trileaflet. There is no aortic valvular sten osis. No aortic regurgitation is present. Mitral Valve The mitral valve is normal in structure. No evidence of mitral valve stenosis. Trace mitral regurgita tion. Tricuspid Valve The tricuspid valve is normal in structure. There is no tricuspid valve stenosis. Trace tricuspid reg urgitation. Pulmonic Valve The pulmonary valve is normal in structure. There is no pulmonic valvular stenosis. Trace pulmonic re gurgitation. Great Vessels The aortic root is normal in size. The ascending aorta is normal in size. Aortic arch is normal in ca liber. IVC is normal in size and collapses >50% with inspiration. Pericardium There is no pericardial effusion. 2D Dimensions IVSD d PLAX 0.99 cm M: 0.6-1.2 LV Vol A2C d MOD 152.1 mL LVPW d PLAX 0.98 cm M: 0.6 - 1.2 LV Vol A4C d MOD 138.5 mL LVID d PLAX 5.01 cm M: 4.2 - 5.8 LA vol/ BSA A2C s A-L 31.7 mL/m2 LVDs 3.30 cm M: 2.5 - 4.0 LA vol/ BSA A4C s A-L 26.5 mL/m2 Ao Root d 3.44 cm M: 3.1 - 3.7 LA Vol/ BSA Biplane s A-L 29.1 mL/m2 RA Area A4C 15.75 cm2 LA Area A4C s MOD 18.98 cm2 RA Vol/ BSA A4C s A-L 22.2 mL/m2 LA Area A2C s MOD 20.80 cm2 Ao Asc Diam d 3.46 cm M: 2.6 - 3.4 LV EF A4C MOD 61.3 % LV EF Teichholz 62.4 % LV EF A2C MOD 60.3 % LVEF (Gallo's) 60.78 % M: 52 - 72 LV EF Biplane MOD 60.8 % LV Volume 108.88 mL M: 62 - 150 SV 88.85 mL LV Volume Index 53.37 mL/m2 M: 34 - 74 SV Index 43.50 mL/m2 LV Vol Biplane MOD 146.2 mL FS 33.75 % M-Mode TAPSE 2.17 cm (M/F) >1.7 LV Diastology MV E' medial 0.077 (>0.07 m/s) E/A Ratio 1.1 LV E/e MED 8.35 (<14) MV E Vmax 0.65 (0.4-1.3 m/s) MV E' lateral 0.131 (>0.1 m/s) MV A Vmax 0.60 (0.4-1.3 m/s) LV E/e LAT 4.90 (<14) MV E/A Ratio 1.07 MV E/E' medial 8.39 MV E/E' lateral 4.94 Aortic Valve LVOT Area 3.18 cm2 AoV Area Vmax 2.64 cm2 LVOT Vmax 1.22 m/s AoV Area/ BSA (Vmax) 1.29 cm2/m2 LVOT Mean Americo. 0.74 m/s RUBIN Mean Americo. 2.46 cm2 LVOT Peak Grad 5.9 mmHg RUBIN Mean Americo. Index 1.20 cm2/m2 LVOT Mean Grad 2.7 mmHg LVOT VTI 0.257 m LVOT Diam s 2.00 cm AoV Vmax 1.47 m/s Velocity Ratio 0.82 AoV Mean Americo. 0.96 m/s AoV Peak Grad 8.6 mmHg LVOT SV 81.78 mL AoV Mean Grad 4.3 mmHg AoV VTI 0.271 m AoV Area VTI 3.01 cm2 AoV Area/ BSA (VTI) 1.48 cm/m2 Mitral Valve MV DT 233 (160-240 msec) MV PHT 68 msec MV Area PHT 3.25 cm2 MV VTI 0.202 m MV VTI Annulus 0.201 m MV Area VTI 4.05 (4.0-6.0 cm2) Pulmonary Valve PV Vmax 1.46 (0.5-1.5 m/s) RVOT Peak Gr. 2.79 mmHg PV Peak Grad 8.6 mmHg RVOT Mean Gr. 1.40 mmHg PV Mean Grad 4.1 mmHg RVOT VTI 0.175 m PV VTI 0.287 m RVOT Vmax 0.84 m/s Tricuspid Valve TR Peak Grad 20.8 mmHg TR Vmax 2.28 m/s RA Pressure 3.00 mmHg RVSP (TR) 23.8 mmHg
== END 2020-11-22 03:59 ==
PROVIDERS: PCP Nurse Practitioner Family; Visit Provider Nurse Practitioner Family
DX: R06.01 Orthopnea (principal); R06.02 Shortness of breath
CPT/HCPCS: 71250; 93306

== ENCOUNTER 2020-11-26 02:57 | Outpatient (CLI) | payer OTHER, SELFPAY ==
[2020-11-26] MEDS: Inhaler, Assist Device 1 EACH MC (16:07)
[2020-11-26] MEDS: Albuterol HFA 18 GM 200 PUFF INH IH (16:07)
--- NOTE | 2020-12-02 15:55 | W.PFT ---
Date of service: 11/26/20 Time of Service: 03:03 Pulmonary Function Test Result Interpretation Spirometry: No evidence of obstructive airways disease, no bronchodilator response Lung Volumes: No evidence of restriction Diffusion Capacity: Normal Airway Pressure: Normal Impression Normal pulmonary function study Clinical Correlation therefore is recommended.
== END 2020-11-26 02:58 | disposition home or self-care (01) ==
LOC: RT 02:57
PROVIDERS: PCP Nurse Practitioner Family; Visit Provider Nurse Practitioner Family
DX: R06.09 Other forms of dyspnea (principal); R07.89 Other chest pain; R06.2 Wheezing
CPT/HCPCS: 94060; 94726; 94729

== ENCOUNTER 2020-12-30 00:51 | Outpatient (CLI) | payer OTHER, SELFPAY ==
--- NOTE | 2020-12-30 08:30 | DI.RAD_ITS ---
Exam(s) XR KNEE LT 3V AP,LAT,ANUPAM EXAM: XR KNEE LT 3V AP,LAT,ANUPAM CLINICAL HISTORY: Left anterior knee pain,M25.562. TECHNIQUE: 2D digital imaging was performed. COMPARISON: No exams were available for comparison FINDINGS: There is no evidence of fracture. There is a small amount of increased joint fluid. Degenerative ch anges-moderate are seen in the medial compartment as well as medial compartment chondrocalcinosis. A lso chondrocalcinosis in the lateral compartment which exhibits normal height. Mild degenerative naresh nges in the patellofemoral compartment. Degenerative pointing of the tibial spines is noted. IMPRESSION: Degenerative changes. Chondrocalcinosis. Small joint effusion DATA REPOSITORY: RADIATION DOSE DELIVERED:
== END 2020-12-30 01:11 ==
PROVIDERS: PCP Nurse Practitioner Family; Visit Provider Nurse Practitioner Family
DX: M25.562 Pain in left knee (principal); M17.12 Unilateral primary osteoarthritis, left knee; M25.462 Effusion, left knee
CPT/HCPCS: 73562

== ENCOUNTER 2021-07-25 10:09 | Outpatient (CLI) | payer OTHER, SELFPAY ==
--- NOTE | 2021-07-25 10:00 | RT.EKG_ITS ---
APPROVED REPORT Exam: Resting ECG Reason for Exam: Pre Op H H Patient Location: O HR:72 bpm ECG Measurements Heart Rate 72 AXIS NM 151 P 53 QRSd 95 QRS 61 QT 394 T 51 QTc 431 Conclusion Sinus rhythm...normal P axis, V-rate 60- 99 Normal Electrocardiogram
== END 2021-07-25 10:10 | disposition home or self-care (01) ==
LOC: DI.CM 10:09
PROVIDERS: PCP Nurse Practitioner Family; Visit Provider Nurse Practitioner Family
DX: Z01.818 Encounter for other preprocedural examination (principal)
CPT/HCPCS: 93010

== ENCOUNTER 2022-07-31 02:45 | Emergency (ER) | payer OTHER, SELFPAY ==
[2022-07-31 02:51] VITALS: BP 133/79; PULSE 74; RESP 16; TEMP 36.6; O2SAT 95
[2022-07-31 02:58] LABS: Bilirubin Negative (Negative); Blood Small (Negative); Clarity Clear (Clear); Glucose Negative (Negative); Ketones Negative (Negative); Leukocyte Esterase Negative (Negative); Nitrite Negative (Negative); Specific Gravity >= 1.030 (1.005-1.025); Urobilinogen 0.2 EU/dL (Up TO 0.2)
--- NOTE | 2022-07-31 03:00 | DI.CT_ITS ---
Exam(s) CT RENAL COLIC WO EXAM: CT RENAL COLIC WO CLINICAL HISTORY: R groin pain, hematuria. TECHNIQUE: Imaging Protocol: Axial computed tomography images with coronal and sagittal reformatted images were created and reviewed. COMPARISON: CT CT renal colic wo from 06/23/2018 FINDINGS: ABDOMEN: Lung Bases: Mild atelectasis. Liver: Normal density. No measurable mass. Gallbladder and biliary tract: No radiodense calculus or biliary ductal dilation. Pancreas: Normal density, no abnormal calcifications or inflammatory process. Spleen: Normal. Kidneys: Normal size, contour and axis.There is a 7 mm stone at the right UVJ causing moderate hydron ephrosis. No masses seen. Adrenal glands: No mass is seen. Lymph nodes: Within normal limits. Abdominal Aorta: Abdominal portion non-dilated. Mild atherosclerosis. PELVIS: Bladder:Symmetric distention, no gross wall thickening. Bowel: No obstruction or bowel wall thickening. Appendix is unremarkable. Peritoneal cavity: No ascites, collection or mesenteric inflammatory response. No free air. Reproductive organs: Unremarkable as visualized. Bones: Within normal limits. Soft Tissues: There are fat containing inguinal hernias present. IMPRESSION: 7 mm right UVJ stone causing moderate hydronephrosis. RADIATION DOSE DELIVERED: 772.04mGy.cm Total DLP DATA REPOSITORY: All CT scans at this facility are submitted to the National Radiology Data Registry (NRDR) Dose Index Registry (DIR) with the [employer] (ACR). RADIATION OPTIMIZATION: All CT scans at this facility use at least one of these dose optimization te chniques: automated exposure control; mA and/or kV adjustment per patient size (includes targeted exa ms where dose is matched to clinical indication); or iterative reconstruction.
[2022-07-31 03:04] LABS: Bacteria Few HPF (Negative); C & S Indicated? No; Casts Negative LPF (Negative); Crystals Negative HPF (Negative); Epithelial Cells Few HPF (Negative); Mucus Negative (Negative); WBC 0-2 HPF (0-5)
--- NOTE | 2022-07-31 03:10 | ED.GENADUL_ITS ---
Discharge Plan Disposition Patient Disposition: Home Condition: Improving Discharge Details Clinical Impression: Right ureteral stone Primary Care Provider: Shira Bucio ED Provider: Emeterio Sarabia Home Meds and New Rx's Prescriptions: New tamsulosin [Flomax] 0.4 mg capsule 0.4 mg PO DAILY Qty: 7 0RF Continued albuterol sulfate 90 mcg/actuation HFA aerosol inhaler 2 puff inhalation Q6H PRN (Reason: shortness of breath or wheezing) Qty: 18 4RF (DME) Aerochamber MV Spacer See Rx Instructions .ROUTE .MEDSUPPLY Qty: 1 2RF Rx Instructions: Use with inhalers sildenafil 100 mg tablet 100 mg PO ONCE MDD 1 tab Qty: 7 4RF Rx Instructions: administer 30 minutes to 4 hours before activity Discharge Instructions Instructions: Kidney Stones (ED) Additional Instructions: Home to rest this evening. May continue Tylenol and ibuprofen as needed for pain. May use the provided oxycodone if needed for severe or breakthrough pain. Please take Flomax once daily until you have passed the kidney stone. This medication may cause slight lightheadedness when rising quickly to a standing for physician. We will have our care management team arrange a follow-up for you in urology clinic. Return to the ER for any acute concerns. Medical Decision Making 62-year-old male presents from home with the abrupt onset of right lower quadrant pain, consistent with previous episodes of renal colic. He is not had a fever. He was nauseated and had 1 episode of emesis. Patient arrives to the ER interactive and well-appearing with normal vital signs. Urinalysis reveals hematuria. White blood cell count of 12, hematocrit 43, platelets 230. Chemistries showed an unremarkable electrolytes a BUN of 16 and creatinine 1.0. Urine with blood but no evidence of infection. Patient referred for CT imaging which reveals a distal right ureteral stone approximately 5 x 7 mm, mild right hydronephrosis. See the formal report. Patient improved following medications. We will place him on Flomax. We will have him follow-up with urology. He is stable and appropriate discharge to home. He was consented for the use of a small number of narcotic analgesics if needed for breakthrough pain. HPI General Mode of arrival: ambulatory . Date/Time Provider Initiated Documentation: 07/31/22 03:05 . Limitations to Documentation: no limitations . Information obtained by: patient and family . History of Present Illness 62 year old M presents to the emergency department with the chief complaint of Right groin pain now improving, described as mild, Quality is described as constant, and is localized to the right. Patient reports no radiation. Patient started experiencing this hour(s) and it has been other (Improving). No relieving factors improve symptom(s), No exacerbating factors reported . Patient notes denies fever/chills. Patient did receive the following treatments prior to arrival, NSAID Related Data Home Medications Medication Instructions Recorded Confirmed inhalational spacing device #1 ea 12/16/20 07/31/22 (Aerochamber MV spacer) sildenafil 100 mg tablet 100 mg PO ONCE #7 tabs 04/30/21 07/31/22 albuterol sulfate 90 mcg/actuation 2 puff inhalation Q6H PRN 09/03/21 07/31/22 aerosol inhaler shortness of breath or wheezing #18 grams tamsulosin 0.4 mg capsule (Flomax) 0.4 mg PO DAILY #7 caps 07/31/22 Previous Rx's Medication Instructions Recorded inhalational spacing device #1 ea 12/16/20 (Aerochamber MV spacer) sildenafil 100 mg tablet 100 mg PO ONCE #7 tabs 04/30/21 albuterol sulfate 90 mcg/actuation 2 puff inhalation Q6H PRN 09/03/21 aerosol inhaler shortness of breath or wheezing #18 grams tamsulosin 0.4 mg capsule (Flomax) 0.4 mg PO DAILY #7 caps 07/31/22 Allergies Allergy/AdvReac Type Severity Reaction Status Date / Time No Known Allergies Allergy Verified 07/31/22 02:55 General Stated Complaint: FlankPain ARTUR: 3 Review of Systems Narrative: Nauseated, vomited once. No fever. Now improving. Recently well. 6 systems reviewed and otherwise negative PFSH All Active Problems (Updated 07/31/22 @ 03:55 by Emeterio Sarabia MD) Right ureteral stone (Acute) Mild intermittent asthma (Chronic) Eosinophilic esophagitis (Chronic) Medical History Dysphagia Peptic duodenitis Surgical History History of total left knee replacement (TKR) (08/19/21) S/P arthroscopy of right shoulder S/P colonoscopy (10/28/20) Family History Mother Alcohol abuse Stroke Father Dementia Sister Substance abuse Brother Gout Brother No problems noted. Brother No problems noted. Son No problems noted. Son No problems noted. Maternal Grandfather , at 56 of [place] or stroke No problems noted. Maternal Grandmother No problems noted. Paternal Grandfather No problems noted. Paternal Grandmother No problems noted. Social History Smoking/Tobacco Use Status: Never Second Hand Exposure: Yes Smoking risk assessment performed?: Yes Alcohol Intake: current Alcohol Intake frequency: a few times a month Alcohol type: beer Drug use: Never Substance use type: does not use Details: alcohol: unknown Household members: spouse Housing: house Do you need help understanding health information?: Never Pets and animals: Yes Pets and animals: dog(s) Sexually active: Yes Do you think of yourself as: straight/heterosexual Current gender identity: male What is your relationship status?: How often do you talk on the phone with friends or family?: once per week How often do you get together with friends or relatives?: once per week Do you belong to any clubs or organized social groups?: no Panel score (0-1 are the most socially isolated patients): 1 What type of physical activity do you participate in: walking Duration: 30-45 minutes/day Frequency: 3-4 times per week Special margaux needs: No Seatbelt use: sometimes Helmet use: Yes Helmet use: sometimes Drive intox or ride w/intox bulk delivery driver: No Do you feel safe at home: Yes Do you feel safe in your relationship?: Yes Victim of physical abuse: No Victim of emotional abuse: No Victim of sexual abuse: No Would you like helpful sources: No Exam Narrative Exam Narrative: GEN: awake, alert, oriented 3. Pleasant, well groomed, interactive. HEAD: Normocephalic, atraumatic ENT: Mucous membranes moist, oropharynx unremarkable, External ear exam unremarkable EYES: PERRL, EOMI NECK: Full ROM, no LYNDSAY, no menigismus CHEST/RESP: Nontender, clear to auscultation bilateral, no wheeze/rhonchi/rales CARDIOVASCULAR: RRR, no murmur, rub james. 2+ Rad pulse bilateral ABDOMEN: Soft, minimal right lower quadrant tenderness, no mass. +Bowel sounds EXT: Full ROM, no edema, no rash Neuro: Grossly normal neurologic exam, conversant, interactive. Psych: Speech fluent, thoughts congruent, affect normal Course Vital Signs Vital signs: Vital Signs Temperature 36.6 C 07/31/22 02:51 Pulse 74 07/31/22 02:51 Respiratory Rate 16 07/31/22 02:51 Blood Pressure 133/79 07/31/22 02:51 Pulse Oximetry 95 07/31/22 02:51 Temperature 36.6 C 07/31/22 02:51 Temperature Source Temporal Artery Scan 07/31/22 02:51 Pulse 74 07/31/22 02:51 Respiratory Rate 16 07/31/22 02:51 Respiratory Effort 07/31/22 02:51 Blood Pressure 133/79 07/31/22 02:51 Blood Pressure Position Sitting 07/31/22 02:51 Pulse Oximetry 95 07/31/22 02:51 Oxygen Delivery Method Room Air 07/31/22 02:51 Oxygen Flow Rate 0 07/31/22 02:51 Pain Level 6 07/31/22 02:56 Lab/Test Results Lab/Test Results: Laboratory Tests Range/Units 07/31/22 02:50 Urine Color (Yellow) Yellow Urine Clarity (Clear) Clear Urine pH (5-8) 5.0 Ur Specific [place] (1.005-1.025) >= 1.030 H Urine Protein (Negative) mg/dL 30 H Urine Ketones (Negative) mg/dL Negative Urine Blood (Negative) Small H Urine Nitrite (Negative) Negative Urine Bilirubin (Negative) Negative Urine Urobilinogen (Up TO 0.2) EU/dL 0.2 Ur Leukocyte Esterase (Negative) Negative Urine RBC (0-2) HPF 5-10 H Urine WBC (0-5) HPF 0-2 Ur Epithelial Cells (Negative) HPF Few Urine Crystals (Negative) HPF Negative Urine Bacteria (Negative) HPF Few Urine Casts (Negative) LPF Negative Urine Mucus (Negative) Negative Ur Culture Indicated? No Urine Glucose (Negative) mg/dL Negative
[2022-07-31 03:16] LABS: Abs Immature Grans 0.04 10^3/uL (0.0-0.06); Absolute Eosinophil Count 0.34 10^3/uL (0.0-0.7); Absolute Lymphocyte Count 1.82 10^3/uL (1.2-3.4); Absolute Neutrophil Count 9.73 10^3/uL (1.2-6.7); Eosinophils % 2.7; HCT 45.5 % (40.0-50.0); HGB 15.5 g/dL (13.5-17.5); Immature Grans % 0.3; Lymphocytes % 14.5; MCHC 34.1 % (32.0-36.0); MCV 88 fL (80-95); MPV 9.7 fL (8.0-11.0); Neutrophils % 77.5; Platelet Count 230 10^3/uL (130-400); RBC 5.16 10^6/uL (4.36-5.78); RDW 12.2 % (11.8-14.1); RDW-SD 39.5 fL; WBC 12.55 10^3/uL (4.4-10.8)
[2022-07-31 03:21] LABS: Absolute Basophil Count 0.13 10^3/uL (0.0-0.2)
[2022-07-31] MEDS: Normal Saline 1,000 ML 150 ML IV (03:26)
[2022-07-31] MEDS: ACETAMINOPHEN 1,000 MG/100 ML BTL 400 MG IVPB (03:26)
[2022-07-31 03:28] LABS: BUN 16 mg/dL (7-18); Calcium 8.8 mg/dL (8.5-10.1); Chloride 106 mmol/L (98-107); Estimated GFR 86.16 (mL/min/1.73m2); Glucose 149 mg/dL (74-106); Potassium 3.8 mmol/L (3.5-5.1); Sodium 141 mmol/L (136-145)
[2022-07-31] MEDS: Tamsulosin 0.4 MG CAPCR PO (03:49)
--- NOTE | 2022-07-31 03:50 | NUR.NOTE ---
Referral faxed to [facility] Urology for f/u of kidney stone.Nursing Note:
--- NOTE | 2022-07-31 03:53 | DI.VRAD_ITS ---
PROCEDURE INFORMATION: Exam: CT Abdomen And Pelvis Without Contrast Exam date and time: 07/31/2022 3:38 AM Age: 62 years old Clinical indication: Abdominal pain; Localized; Lower; Additional info: R groin pain, hematuria TECHNIQUE: Imaging protocol: Computed tomography of the abdomen and pelvis without contrast. Radiation optimization: All CT scans at this facility use at least one of these dose optimization techniques: automated exposure control; mA and/or kV adjustment per patient size (includes targeted exams where dose is matched to clinical indication); or iterative reconstruction. COMPARISON: CT renal colic wo 06/23/2018 5:23 AM FINDINGS: Lungs: Mild dependent atelectasis or edema. Liver: Unremarkable noncontrast liver imaging. Gallbladder and bile ducts: Normal. No calcified stones. No ductal dilation. Pancreas: Normal. No ductal dilation. Spleen: Normal. No splenomegaly. Adrenal glands: Normal. No mass. Kidneys and ureters: Mild right hydronephrosis. Right perinephric fat stranding. Mildly dilated right ureter. A stone at the distal ureter measures 5 x 7 mm. Please see axial image 126. The stone is 1 cm from the ureteral vesicular junction. Stomach and bowel: Unremarkable stomach. Nondilated small bowel. Negative for inflammatory changes around the colon. Submucosal fat deposition is observed through the ascending and transverse colon. Scattered colonic diverticula are noted in the descending colon. Appendix: Negative for inflammatory changes around the appendix. A small appendicoliths is noted. Intraperitoneal space: Unremarkable. No free air. No significant fluid collection. Vasculature: Unremarkable. No abdominal aortic aneurysm. Lymph nodes: Unremarkable. No enlarged lymph nodes. Urinary bladder: Unremarkable. Thin sanchez. Reproductive: Unremarkable as visualized. Bones/joints: Disc space narrowing with mild osteophyte formation noted in the lumbar spine. No compression fractures. Soft tissues: Unremarkable. IMPRESSION: 1. Distal right ureteral stone, 5 x 7 mm. 2. Mild right hydronephrosis. 3. Chronic inflammatory changes noted in the proximal colon. Dictated and Authenticated by: Lakhwinder Oquendo MD. Ordering:SALONI Storm MD
[2022-07-31 04:12] VITALS: BP 116/75; PULSE 66; RESP 16; TEMP 36.6; O2SAT 96
== END 2022-07-31 04:12 | disposition home or self-care (01) ==
PROVIDERS: Emergency Provider Emergency Medicine; PCP Nurse Practitioner Family
DX: N13.2 Hydronephrosis with renal and ureteral calculous obstruction (principal); Z87.19 Personal history of other diseases of the digestive system; Z96.652 Presence of left artificial knee joint
CPT/HCPCS: 80048; 96365; 99284; 74176; 81003; 81015; 85025; J0131

== ENCOUNTER 2023-09-08 16:44 | Outpatient (CLI) | payer OTHER, SELFPAY ==
[2023-09-08 17:15] LABS: ALT 31 U/L (16-63); AST 20 U/L (15-37); Albumin 3.7 g/dL (3.4-5.0); Alkaline Phosphatase 50 U/L (46-116); Anion Gap 6.5 mmol/L (3-11); BUN 17 mg/dL (7-18); Bilirubin, Total 0.5 mg/dL (0.2-1.0); CO2 29.5 mmol/L (21.0-32.0); CREATININE 1.2 mg/dL (0.70-1.30); Calculated LDL 74 mg/dL (<100); Chloride 107 mmol/L (98-107); Cholesterol 155 mg/dL (<200); Glucose 90 mg/dL (74-106); HDL Cholesterol 60 mg/dL (40-60); Potassium 4.1 mmol/L (3.5-5.1); Sodium 143 mmol/L (136-145); TSH (W/Ref FT4) 2.18 uIU/mL (0.36-3.74); Total Protein 6.6 g/dL (6.4-8.2); Triglyceride 109 mg/dL (<150)
[2023-09-09 18:16] LABS: PSA, Screening 1.3 ng/mL (<=4.5)
[2023-09-09 18:56] LABS: Hepatitis C Ab w Rflx HCV PCR Negative (Negative)
== END 2023-09-08 16:45 | disposition home or self-care (01) ==
LOC: LBO 16:45
PROVIDERS: PCP Nurse Practitioner Family; Visit Provider Nurse Practitioner Family
DX: Z00.00 Encounter for general adult medical examination without abnormal findings (principal); Z12.5 Encounter for screening for malignant neoplasm of prostate
CPT/HCPCS: 36415; 80053; 80061; 84153; 86803; 84443

== ENCOUNTER 2023-12-08 15:21 | Outpatient (REF) | payer OTHER, SELFPAY ==
[2023-12-08 12:52] LABS: Bilirubin Negative (Negative); Blood Small (Negative); Clarity Clear (Clear); Glucose Negative (Negative); Ketones Negative (Negative); Leukocyte Esterase Negative (Negative); Nitrite Negative (Negative); Specific Gravity 1.025 (1.005-1.025); Urobilinogen 0.2 mg/dL (Up to 0.2)
[2023-12-08 13:05] LABS: Bacteria Rare HPF (Negative); C & S Indicated? No; Casts Negative LPF (Negative); Crystals Negative HPF (Negative); Epithelial Cells Rare HPF (Negative); Mucus Trace (Negative); WBC 0-2 HPF (0-5)
== END 2023-12-08 15:22 | disposition home or self-care (01) ==
LOC: LBN 15:21
PROVIDERS: PCP Nurse Practitioner Family; Visit Provider Nurse Practitioner Family
DX: R10.30 Lower abdominal pain, unspecified (principal); R39.15 Urgency of urination
CPT/HCPCS: 81003; 81015

== ENCOUNTER → 2023-12-16 00:13 | Outpatient (CLI) | payer OTHER, SELFPAY ==
[2023-12-16] MEDS: Omnipaque 350 MG/ML 500 ML BTL-Imaging package 100 ML IJ (10:56)
[2023-12-16] MEDS: Normal Saline - Diluent 50 ML VIAL IJ (10:57)
[2023-12-16] MEDS: Normal Saline Flush 10 ML SYR IVP (10:58)
--- NOTE | 2023-12-16 11:00 | DI.CT_ITS ---
Exam(s) CT ABDOMEN PELVIS W EXAM: CT ABDOMEN PELVIS W CLINICAL HISTORY: R10.30 Lower abd pain, Inguinal hernias? bladder mass TECHNIQUE: Imaging Protocol: Axial computed tomography images with coronal and sagittal reformatted images were created and reviewed. CONTRAST MATERIAL: Intravenous: Omnipaque 350 Contrast volume:100 mL Oral: Yes COMPARISON: CT ABD PELVIS WO CONTRAST from 03/20/[address] renal colic wo from 06/23/[address] RENAL COLIC WO from 07/31/2022 FINDINGS: ABDOMEN: Lung Bases: Atelectatic changes are seen in the lung bases. Liver: Normal density. No measurable mass. Portal, Superior Mesenteric, and Splenic Veins: Unremarkable. Gallbladder and Biliary Tract: No radiodense calculus or dilation. Pancreas: Normal density, no abnormal calcifications or inflammatory process. Spleen: Normal. Adrenals: No masses seen. Kidneys: Normal size, contour and axis. No radiodense stones or obstructive uropathy. There are few t iny hypodensities in the kidneys bilaterally. They are too small for further characterization but li rosa reflect small cysts. No follow-up is recommended. Abdominal Aorta: Abdominal portion non-dilated. Mild atherosclerotic calcification. Bowel: No obstruction or bowel wall thickening. Appendix is unremarkable. Peritoneal Cavity: There is a trace amount of free fluid in the pelvis. No free air. Lymph Nodes: Within normal limits. Bones: Within normal limits for the patient's age. Soft Tissues: There is a fat containing left inguinal hernia. There is a fat containing right inguin al hernia containing a knuckle of small bowel. The small bowel is unremarkable without evidence of o bstruction/strangulation. PELVIS: Bladder: The urinary bladder is incompletely distended. No gross abnormality is identified. The yolette dder wall is mildly thickened. No discrete bladder mass is seen. Reproductive Organs: There is a left hydrocele. Lymph Nodes: Within normal limits. Bones: Within normal limits for the patient's age. IMPRESSION: 1. Bilateral inguinal hernia. There is a short segment of small bowel within the right inguinal sergei ia opening without evidence of obstruction. 2. Mild thickening of the wall of the urinary bladder. This may be due to underdistention. Cystitis or chronic bladder outlet obstruction cannot be excluded. No discrete bladder mass is seen at this time. Follow-up as clinically appropriate. 3. Left scrotal hydrocele. RADIATION DOSE DELIVERED: 979.27mGy.cm Total DLP DATA REPOSITORY: All CT scans at this facility are submitted to the National Radiology Data Registry (NRDR) Dose Index Registry (DIR) with the [employer] (ACR). RADIATION OPTIMIZATION: All CT scans at this facility use at least one of these dose optimization te chniques: automated exposure control; mA and/or kV adjustment per patient size (includes targeted exa ms where dose is matched to clinical indication); or iterative reconstruction.
[2023-12-16] MEDS: Barium Sulfate 2% W/V-Berry Smoothie 450 ML BTL PO ×2 (11:37→11:38)
[2023-12-16 12:11] LABS: CREATININE 1.1 mg/dL (0.70-1.30); Estimated GFR 78.07 (mL/min/1.73m2)
== END ==
PROVIDERS: PCP Nurse Practitioner Family; Visit Provider Nurse Practitioner Family
DX: R10.30 Lower abdominal pain, unspecified (principal)
CPT/HCPCS: 74177; 82565

== ENCOUNTER 2024-10-13 15:19 | Outpatient (CLI) | payer OTHER, SELFPAY ==
--- NOTE | 2024-10-13 12:15 | DI.RAD_ITS ---
Exam(s) XR KNEE LT 3V AP,LAT,ANUPAM EXAM: XR KNEE LT 3V AP,LAT,ANUPAM CLINICAL HISTORY: Z96.652 left knee creaking sounds since replacement. TECHNIQUE: 2D digital imaging was performed. Three views. COMPARISON: CR XR KNEE LT 3V AP,LAT,ANUPAM from 12/30/2020 which was preoperative. No postoperative ex ams for comparison. FINDINGS: BONES: No acute fracture is present. No bony destructive lesion is seen. JOINTS: The knee prosthesis is normally aligned. A small joint effusion is seen. SOFT TISSUE: There is a calcification seen on the lateral view projecting in the patellofemoral joint space. IMPRESSION: The total knee prosthesis is unremarkable. There is small calcification in the superior patellofemor al joint space which could be postsurgical. Loose body not excluded. DATA REPOSITORY: RADIATION DOSE DELIVERED:
== END 2024-10-13 15:39 ==
LOC: DI 15:19
PROVIDERS: PCP Nurse Practitioner Family; Visit Provider Nurse Practitioner Family
DX: Z96.652 Presence of left artificial knee joint (principal); Z47.1 Aftercare following joint replacement surgery
CPT/HCPCS: 73562

== ENCOUNTER 2025-04-03 06:09 | Day surgery (SDC) | payer OTHER, SELFPAY ==
--- NOTE | 2025-04-02 16:22 | PDOC.DSDIS_ITS ---
Date of service: 04/03/25 Discharge Plan Disposition Patient Disposition: Home Condition: Good Discharge Details Reason For Visit: Bilateral inguinal hernia repair Attending Provider: Gopal Ang Primary Care Provider: Shira Bucio Home Meds and New Rx's Prescriptions: New tramadol 50 mg tablet 50 mg PO Q8H PRNQty: 12 0RF Rx Instructions: Take 1 tablet by mouth up to every 8 hours if needed for severe pain. Continued Dulera 100-5 mcg/actuation HFA aerosol inhaler 2 puff inhalation BID PRN (Reason: shortness of breath or wheezing) Qty: 13 6RF albuterol sulfate 90 mcg/actuation HFA aerosol inhaler 2 puff inhalation Q6H PRN (Reason: shortness of breath or wheezing) Qty: 18 4RF sildenafil 100 mg tablet 50 - 100 mg PO ONCE MDD 1 tab Qty: 7 4RF Rx Instructions: administer 30 minutes to 4 hours before activity (DME) Aerochamber MV Spacer See Rx Instructions .ROUTE .MEDSUPPLY Qty: 1 2RF Rx Instructions: Use with inhalers fluocinonide 0.05 % solution 1 applic topical DAILY PRN (Reason: psoriasis) Qty: 60 3RF Discharge Instructions Instructions: Groin Hernia Repair, Laparoscopic Surgery Additional Instructions: Ray, it was great seeing you today, and I hope you make a smooth and uneventful recovery as you transition home. Things went very well in the operating room. We are able to repair both hernias with a laparoscopic approach just as we discussed beforehand. Expect to get some bruising over the incisions, maybe e brando down into your scrotum. That is extremely common and nothing to worry about. You also may notice some air in your scrotum and the surrounding soft tissues related to the use of the laparoscope. That typically resolves over the course of a week or so. You should be up and moving around as you get home, and going for some basic light walks. Should be doing a little bit more more each day. In between periods of exercise, try to keep your pelvis elevated around the level of your heart, or maybe even above it a little bit if possible. This will help with swelling from the surgery. As we discussed beforehand, using Tylenol and ibuprofen in addition to the prescription for tramadol will be useful over the next few days. If you need anything at all, please do not hesitate to call at any time, otherwise I look forward to seeing you in the office at your follow-up. 1. Resume all of your regular medications. 2. Use ice packs over the incisions, or over your groins to help pain after surgery. 3. Alternate [id number] Tylenol and ibuprofen every 6 hours for the first 2 days, then use them as needed. Use the prescription for tramadol if needed for more severe pain. 4. Leave bandages in place for 24 hours, then remove. 5. Shower with warm soapy water. Pat dry. Use a bandaid if needed to protect your clothing. 6. No soaking or tub baths until I see you in the office. 7. No heavy lifting until I see you in the office. 8. Call the office (or go directly to the emergency room after hours) if you notice any of the following: Develop chills (warm to touch), or if you have a thermometer and your temperature is above 101 Difficulty breathing or difficultly swallowing Persistent vomiting Any bleeding ? exceeding one tablespoon 9. Call your physician if the site where your intravenous was started becomes red, swollen, painful, and warm to touch. Referrals: Gopal Ang MD [ [facility] STAFF PHYSICIAN, Surgery] - 04/19/25 2:30 pm Activity:: No heavy lifting Remove Dressings/Wound Care:: 24 hours Shower/Bathe:: 24 hours Diet:: As Tolerated Discharge Orders Discharge Orders: Discharge Order (Routine); Ordered 04/02/25 Ordered By: Gopal Ang DS: Diagnosis Discharge Diagnosis (1) Bilateral inguinal hernia: Status: Chronic Asessment and Plan: Status post laparoscopic inguinal hernia repair. Outpatient follow-up
[2025-04-03] VITALS (43 sets, daily range): BP systolic 76–142; BP diastolic 35–92; PULSE 58–83; RESP 12–24; TEMP 35.8–36.8; O2SAT 90–99; BMI 29.9
--- NOTE | 2025-04-03 06:22 | ANES.PREOP_ITS ---
General Info Date of Service Date Performed: 04/03/25 Height: 5 ft 8 in Weight: 89.358 kg Body Mass Index (BMI): 29.9 Surgical Procedure: Operation Date: 04/03/25 07:40 Proposed Procedure Side Surgeon p Hernia Inguinal Laparoscopic w/Mesh Bilateral Gopal Ang MD Meds Allergies and Home Medications Allergies Allergy/AdvReac Type Severity Reaction Status Date / Time No Known Allergies Allergy Verified 04/03/25 06:18 Home Medication ?Medication ?Instructions ?Recorded inhalational spacing device #1 ea 12/16/20 (Aerochamber MV spacer) albuterol sulfate 90 mcg/actuation 2 puff inhalation Q 6H PRN 10/12/24 aerosol inhaler shortness of breath or wheez ing #18 grams mometasone-formoterol HFA 100 2 puff inhalation BID DE N 10/12/24 mcg-5 mcg/actuation aerosol shortness of breath or whe ezing inhaler (Dulera) #13 grams sildenafil 100 mg tablet 50 - 100 mg (0.5 - 1 x 100 m g) PO 10/12/24 ONCE #7 tabs fluocinonide 0.05 % topical 1 applic topical DAILY PRN 02/02/25 solution psoriasis #60 mL Current Visit Medications: Current Medications Generic Name Dose Route Start Last Admin Trade Name Freq PRN Reason Stop Dose Admin Acetaminophen 1,000 mg 04/03/25 06:00 Acetaminophen 500 Mg Tab PO 04/03/25 23:59 PREOP EDUARDO Celecoxib 200 mg 04/03/25 06:00 Celecoxib 200 Mg Cap PO 04/03/25 23:59 PREOP EDUARDO Gabapentin 600 mg 04/03/25 06:00 Gabapentin 300 Mg Cap PO 04/03/25 23:59 PREOP EDUARDO Hydromorphone HCl 0.2 mg 04/02/25 16:24 Hydromorphone 2 Mg/Ml Syr IVP 05/02/25 16:23 Q1H PRN PRN Ringer's Solution 1,000 mls @ 80 mls/hr 04/03/25 06:00 IV 04/03/25 23:59 INFUSION EDUARDO Cefazolin Sodium/Dextrose 2 gm in 50 mls @ 100 mls/hr 04/03/25 06:00 Ancef Duplex IVPB 04/03/25 23:59 PREOP EDUARDO IV Miscellaneous Supplies 1 each 04/03/25 06:00 Iv Access IV 04/03/25 23:59 DIRECTED EDUARDO Sodium Chloride 0 ml 04/03/25 06:00 Normal Saline Flush 10 Ml Syr IV 04/03/25 23:59 PRN PRN Sodium Chloride 0 ml 04/03/25 06:00 Normal Saline 10 Ml Vial IJ 04/03/25 23:59 DIRECTED PRN Sterile Water 0 ml 04/03/25 06:00 Water,Injection,Sterile 10 Ml Vial IJ 04/03/25 23:59 DIRECTED PRN Tramadol HCl 50 mg 04/02/25 16:24 Tramadol 50 Mg Tab PO 05/02/25 16:23 Q6H PRN PRN Pain PFSH Active Problems Active Problems: Problem Status Onset Code Bilateral inguinal hernia Chronic K40.20 Mild intermittent asthma Chronic J45.20 Eosinophilic esophagitis Chronic K20.0 Dysphagia Chronic R13.10 Otitis externa of both ears Chronic H60.93 Scalp psoriasis Chronic 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 Medical History Medical History Peptic duodenitis Surgical History Surgical History History of total left knee replacement (TKR) (08/19/21) S/P colonoscopy (10/28/20) S/P arthroscopy of right shoulder Tobacco Smoking/Tobacco Use Status: Never Passive smoking exposure: No Second hand exposure: No Alcohol Alcohol Intake: current Alcohol intake frequency: a few times a month Alcohol type: beer Substance Use Substance use: Never Substance use type: does not use Vital Signs and Lab Results Vital Signs Most Recent Vital Signs in EMR: Temp Pulse Resp BP Pulse Ox 36.4 C L 58 L 16 142/92 H 97 04/03/25 06:25 04/03/25 06:25 04/03/25 06:25 04/03/25 06:25 04/03/25 06:25 Anesthesia Assessment and Plan Anesthesia History Personal History: No History of Anesthesia Complications Family History: No Family History of Anesthesia Complications Exercise Tolerance Exercise Tolerance: Metabolic Equivalents>4 Cardiac & Pulmonary Exam Cardiac Exam: Normal S1/S2 Heart Sounds Pulmonary Exam: Clear Bilateral Breath Sounds Implantable Cardiac Device Does patient have a Pacemaker or an ICD?: No Airway Exam Known Difficult Airway: No Mallampati Class: 2 Mouth Opening: Normal (> 3cm) Thyromental Distance: Less than 3 cm Neck Range of Motion: Full ROM Neck Circumference: Normal Teeth Condition: Normal Dentition ASA Classification ASA Score: ASA 2 Emergency Case?: No NPO Status NPO Status: NPO Clears >2 hours, Solids >8 hours Anesthesia Plan Resuscitation Status: Full Code Anesthesia Technique: General Anesthesia Airway Planned: Endotracheal Tube Monitors Used: Standard Monitors Preoperative Comments:: 64 yo for lap hernia repair. Sig PMHx: asthma (albuterol, dulera. Rare rescue use), dysphagia/eosinophilic esophagitis (on no meds). Never smoker, occ EtOH. ECHO: LVEF 60%. ECG: sinus. PFTs: normal. Previous Anes: - egd/colo, prop, natural airway, no issues.
[2025-04-03] MEDS: Gabapentin 300 MG CAP 600 MG PO (06:29)
[2025-04-03] MEDS: Celecoxib 200 MG CAP PO (06:29)
[2025-04-03] MEDS: Acetaminophen 500 MG TAB 1000 MG PO (06:29)
[2025-04-03] MEDS: Lactated Ringers 1,000 ML 80 ML IV ×2 (06:40→12:33)
--- NOTE | 2025-04-03 06:56 | HPE_ITS ---
Assessment and Plan Assessment and plan (1) Bilateral inguinal hernia: Status: Chronic Assessment and plan: Approximately 25 declines for a laparoscopic inguinal hernia repair, bilateral nature, once again. Jonas had another chance ask any questions. We can proceed with the operation as planned History of Present Illness History of Present Illness Chief Complaint: Bilateral inguinal hernia Narrative: I met Jonas in consultation for bilateral inguinal hernias. At that time, he was experiencing bilateral groin pain, it was mostly in the suprapubic area. Since his pain was improving, we agreed that a short period of observation was very reasonable. He is done pretty well since then, but has had multiple episodes throughout the course of the past year which he describes as sharp, pulling type pain again, mostly in the suprapubic region, that does extend down onto the right and the left proximal thighs. It is now starting to impinge upon his quality of life, and he is interested in surgical repair. PFS All Active Problems Bilateral inguinal hernia (Chronic) Mild intermittent asthma (Chronic) Eosinophilic esophagitis (Chronic) Dysphagia (Chronic) Otitis externa of both ears (Chronic) Scalp psoriasis (Chronic) Medical History Peptic duodenitis Surgical History History of total left knee replacement (TKR) (08/19/21) S/P colonoscopy (10/28/20) S/P arthroscopy of right shoulder Family History Mother , 69 Alcohol abuse Stroke Father , 78 Dementia Sister Substance abuse Brother Gout Brother No problems noted. Brother No problems noted. Son No problems noted. Son No problems noted. Maternal Grandfather , at 56 of [place] or stroke No problems noted. Maternal Grandmother No problems noted. Paternal Grandfather No problems noted. Paternal Grandmother No problems noted. Social History Smoking/Tobacco Use Status: Never Second Hand Exposure: No Smoking risk assessment performed?: Yes Alcohol Intake: current Alcohol Intake frequency: a few times a month Alcohol type: beer Drug use: Never Substance use type: does not use Caregiver/Support person: No Household members: spouse Housing: house Communication Needs: None Do you need help understanding health information?: Never Pets and animals: Yes Pets and animals: dog(s) Sexually active: Yes Do you think of yourself as: straight/heterosexual Current gender identity: male What is your relationship status?: How often do you talk on the phone with friends or family?: twice per week How often do you get together with friends or relatives?: twice per week How often do you attend confucianist or faith services?: decline to answer Do you belong to any clubs or organized social groups?: no Panel score (0-1 are the most socially isolated patients): 2 What type of physical activity do you participate in: walking and bicycling Duration: 15-30 minutes/day Frequency: 3-4 times per week Felicia/Gnosticist: Church Special felicia needs: No Seatbelt use: sometimes Helmet use: Yes Helmet use: always Drive intox or ride w/intox equipment driver: Yes Drive intox or w/intox equipment driver: rarely Do you feel safe at home: Yes Do you feel safe in your relationship?: Yes Victim of physical abuse: No Victim of emotional abuse: No Victim of sexual abuse: No Would you like helpful sources: No Meds Allergies and Home Medications Allergies Allergy/AdvReac Type Severity Reaction Status Date / Time No Known Allergies Allergy Verified 04/03/25 06:18 Home Medications ?Medication ?Instructions ?Recorded ?Confirmed ?Type inhalational spacing device #1 ea 12/16/20 03/01/25 Rx (Aerochamber MV spacer) albuterol sulfate 90 mcg/actuation 2 puff inhalation Q 6H PRN 10/12/24 04/03/25 Rx aerosol inhaler shortness of breath or wheez ing #18 grams mometasone-formoterol HFA 100 2 puff inhalation BID MD N 10/12/24 04/03/25 Rx mcg-5 mcg/actuation aerosol shortness of breath or whe ezing inhaler (Dulera) #13 grams sildenafil 100 mg tablet 50 - 100 mg (0.5 - 1 x 100 m g) PO 10/12/24 03/01/25 Rx ONCE #7 tabs fluocinonide 0.05 % topical 1 applic topical DAILY PRN 02/02/25 03/01/25 Rx solution psoriasis #60 mL Exam Const General: cooperative, healthy appearing and not in acute distress Neck Neck: normal visual inspection, no lymphadenopathy and supple Thyroid: thyroid normal Resp Effort & Inspection: normal respiratory effort Auscultation: clear to auscultation bilaterally Cardio Jugular venous pressure: no JVD Rate: regular rate Rhythm: regular rhythm Heart Sounds: S1 normal and S2 normal GI Inspection: normal to inspection Palpation: soft, no guarding, hernia (bilateral inguinal) and nontender Percussion: normal to percussion Auscultation: normal bowel sounds Neuro General: patient alert, patient awake and patient oriented x3 Psych Appearance: grossly normal Results Last Vital Signs Temp 97.5 F L 04/03/25 06:25 Pulse 58 L 04/03/25 06:25 Resp 16 04/03/25 06:25 BP 142/92 H 04/03/25 06:25 Pulse Ox 97 04/03/25 06:25
[2025-04-03] MEDS: ceFAZolin 2 GM/50 ML BAG IVPB (07:41)
[2025-04-03] MEDS: Bupivacaine 0.25% Pres-Free 30 ML VIAL (11:03)
--- NOTE | 2025-04-03 11:12 | W.PM.OP ---
Operative Note Operative Note PRE-OP DIAGNOSIS: Bilateral inguinal hernias POST-OP DIAGNOSIS: same PROCEDURE: Bilateral transabdominal preperitoneal laparoscopic inguinal hernia repair SURGEON: Gopal Ang ANALOG DESIGN ENGINEER: Keri Sargent ANESTHESIA TYPE: Local By Surgeon and General LMA/ETT Refer to Anesthesia Record ESTIMATED BLOOD LOSS: 20 PATHOLOGY: none sent COMPLICATIONS: None Patient was transported to: PACU Patient's condition: stable Implants: Large right sided Bard 3D max inguinal hernia mesh, large left-sided Bard 3D max inguinal hernia mesh Indications: Jonas is a 64-year-old male with symptomatic bilateral inguinal hernias Procedure Description: I met with Jonas in the preoperative area, and we reviewed the plan for surgery. We went over all of his questions together. He was then brought back to the operating room, and he was assisted onto the OR table. He was padded and supported appropriately. General endotracheal anesthesia was initiated, and then both arms were carefully tucked at his sides. Proper orientation and support was preserved. I prepped and draped the anterior abdominal wall. I anesthetized the skin around the umbilicus and made a small incision. I dissected down to the fascia, and opened it under direct vision. 0 Vicryl stitches were used to affix the 12 mm port in this location. The peritoneum was then insufflated. Jonas was placed in some Trendelenburg positioning. 5 mm ports were then placed on the right and left sides of the abdomen under the direct vision of the laparoscope. We started with the right side. There was clear signs of a direct and indirect hernia. I scored the peritoneum of the anterior abdominal wall and carefully dissected the peritoneum away from the overlying soft tissues. This dissection was carried down towards the inguinal canal. I began working medially, and cleared the pubic tubercle past the midline. This dissection was taken down onto Sanju's ligament. There was a large amount of fat within the direct inguinal hernia space. Once all of this hernia sac was reduced out, I continued the dissection out over the cord structures and along the shelving edge of the inguinal ligament. Great care was taken to avoid the external iliac vessels. Small indirect inguinal hernia sac was reduced from that location as well. Once the iliopectineal structures were all dissected clean, I selected a Bard 3D max inguinal hernia mesh. This was delivered through the 12 mm port, and into the preperitoneal space. It was affixed to the pubic tubercle with a Vicryl suture. It laid quite flat over all of the structures completely obliterating the direct canal, the indirect defect, and the femoral space. Another suture was used to affix it to the anterior portion of the direct space, and finally 1 last suture was placed laterally. With the mesh nicely affixed, and obliterating all of the hernia defects, I reduced the peritoneum back to its normal position, and closed the incision with a running V-Loc suture. I then turned my attention to the left side. Here, the hernia defect appeared to be more indirect in nature. Similar to the right side, I incised the peritoneum, and dissected it off of the underlying inguinal triangle. There was a large fat-containing indirect inguinal hernia sac that was completely reduced. Again, in a fashion similar to the right side, I dissected the medial aspect all along the pubic tubercle, and carefully examined the direct and femoral spaces. They both looked normal. With all of the critical structures completely dissected clean, in a manner identical to the right side, it was affixed medially at the pubic tubercle, then above the direct space, and laterally. Everything looked hemostatic. The peritoneum was then brought back to its normal position, and reapproximated with a V-Loc suture. The 5 mm ports were then removed. The pneumoperitoneum was released, and the 12 mm port was removed prior to reapproximating the fascia with 0 Vicryl stitches. The skin and subcutaneous tissues were irrigated, and subcuticular absorbable suture was used to close the skin layer. Bandages were applied, and Ray was transferred to the recovery unit after extubation. Date of Procedure: 04/03/25
[2025-04-03] MEDS: ePHEDrine 25 MG/5 ML Syringe IVP ×3 (11:46→12:15)
[2025-04-03] MEDS: ePHEDrine 50 MG/ML VIAL 25 MG IM (12:25)
--- NOTE | 2025-04-04 06:29 | W.ANESPOSTOP ---
Postoperative Evaluation Date, Time and Location Date Performed: 04/03/25 Time Performed: 12:00 Patient Location: PACU Vital Signs Most Recent Imported Vital Signs: Most Recent Vital Signs Temp Pulse Resp BP Pulse Ox 36.2 C L 83 16 105/71 94 04/03/25 13:25 04/03/25 13:25 04/03/25 13:25 04/03/25 13:25 04/03/25 13:25 Pain Score Most Recent Pain Score: Most Recent Pain Score Pain Level 0 04/03/25 13:25 Assessment Mental Status: Arousable with meaningful communication Airway and Respiratory Function: Patent airway with normal (patient baseline) respiratory exam Cardiovascular Function: Hemodynamically Stable Hydration Status: Adequately Hydrated Nausea & Vomiting: No Nausea or Vomiting Pain: Pain is tolerable per patient Peripheral Nerve Block: Patient did not receive a nerve block Postoperative Comments:: requiring small amounts of ephedrine. IM dose ordered.
== END 2025-04-03 13:55 | disposition home or self-care (01) ==
PROVIDERS: PCP Nurse Practitioner Family; Visit Provider Surgery
PROC: (CPT 49650; principal; 2025-04-03 07:30)
DX: K40.20 Bilateral inguinal hernia, without obstruction or gangrene, not specified as recurrent (principal)
CPT/HCPCS: 49650; C1781; J0665; J0690; J1100; J1805; J1885; J2371; J2405; J2704; J3475